=== PATIENT | male | born 1935 | race Caucasian/White ===

== ENCOUNTER 2020-12-24 13:28 | Inpatient (IN) ==
[2020-12-24 14:36] LABS: Basophils # (auto) 0.04 K/uL (0-0.2); Basophils % (auto) 0.4 %; Eosinophils # (auto) 0.06 K/uL (0-0.5); Eosinophils % (auto) 0.6 %; Hematocrit (blood only) 47.9 % (42-52); Hemoglobin 16.6 g/dL (14.0-18.0); Immature Granulocytes # (auto) 0.05 K/uL (0.00-0.02); Immature Granulocytes % (auto) 0.5 %; Lymphocytes # (auto) 0.57 K/uL (1.2-3.4); Lymphocytes % (auto) 5.9 %; Mean Corpuscular Hemoglobin 29.6 pg (25-34); Mean Corpuscular Hgb Conc 34.7 g/dL (32-36); Mean Corpuscular Volume 85.5 fL (80-100); Mean Platelet Volume 9.2 fL (7.4-10.4); Monocytes # (auto) 0.97 K/uL (0.11-0.59); Monocytes % (auto) 10.1 %; Neutrophils # (auto) 7.92 K/uL (1.4-6.5); Neutrophils % (auto) 82.5 %; Platelet Count 210 K/uL (130-400); RDW Coefficient of Variation 14.9 % (11.5-14.5); RDW Standard Deviation 46.3 fL (36.4-46.3); White Blood Count 9.61 K/uL (4.8-10.8)
[2020-12-24] MEDS ORDERED: FUROSEMIDE 40 MG/4 ML VIAL IV ONE (14:45)
[2020-12-24 14:55] LABS: Alanine Aminotransferase 54 U/L (12-78); Albumin Level 3.1 gm/dl (3.4-5.0); Aspartate Aminotransferase 36 U/L (15-37); BUN Creatinine Ratio 16.2 (10-20); Blood Urea Nitrogen 18 mg/dl (7-18); Calcium 9.1 mg/dl (8.5-10.1); Carbon Dioxide 25 mmol/L (21-32); Chloride 100 mmol/L (98-107); Est GFR (African American) 71.1 ml/min; Est GFR (Non-African American) 61.3 ml/min; Glucose 112 mg/dl (70-99); Lipase 312 U/L (73-393); Magnesium 2.7 mg/dl (1.8-2.4); Potassium 4.4 mmol/L (3.5-5.1); Sodium 133 mmol/L (136-145)
[2020-12-24 15:11] LABS: Albumin Globulin Ratio 0.7 (0.9-2); Alkaline Phosphatase 157 U/L (45-117); Bilirubin,Total 1.2 mg/dl (0.2-1); Globulin 4.6 gm/dl (2.5-4.0); NT Pro B Type Natriuretic Pept 7150 pg/ml (0-1800); Total Protein 7.7 gm/dl (6.4-8.2); Troponin I 0.055 ng/ml (0-0.045)
[2020-12-24 15:12] LABS: INR 1.2 (0.9-1.1); Partial Thromboplastin Time 26.1 Seconds (21.0-31.0); Prothrombin Time 11.6 Seconds (9.0-12.0)
--- NOTE | 2020-12-24 15:16 | Emergency Department Note ---
Impression & Plan Fluid overload, Atrial fibrillation, Confusion, Bilateral edema of lower extremity ED Provider Note Provider: Jose Yee MD DATE OF SERVICE: 12/24/2020 CHIEF COMPLAINT: Leg swelling, confusion, A. fib HISTORY OF PRESENT ILLNESS: Patient is a 85-year-old gentleman history of atrial fibrillation (not anticoagulation due to fall risk), sepsis, cellulitis, and bioprosthetic valve replacement presenting here referred from the [facility] outpatient clinic today. Patient was seen here yesterday with some leg swelling and weeping with some concern for cellulitis developing. The patient was started on doxycycline. Follow-up in the clinic today and there he complained of little bit of chest pressure and abdominal bloating. Was noted that time to be in atrial fibrillation. Patient denies chest pain to me. States he feels short of breath and winded with movement. States he is noticed his legs both of been swelling with some redness and a little bit of clear serous discharge. Wi fe reports they have had to change towels and various things before due to the amount of liquid departing from here. Patient not had much of the appetite recently and reports has been more foggy or confused over the last week or so. She reports at times he has had some visual hallucinations. Patient denies any significant difficulty speaking at this time. States he is little bit indigestion earlier but denies any nausea or vomiting. Patient states he is on aspirin but no other blood thinners. Patient denies fainting but has felt a little bit unsteady at times. REVIEW OF SYSTEMS: A total of 10 review of systems was obtained and negative except as stated above in the HPI. PAST MEDICAL HISTORY: As noted above MEDICATIONS: Reviewed home medications SOCIAL HISTORY: Lives at home with PHYSICAL EXAM: GENERAL: alert and oriented in no acute distress on stretcher Head: normocephalic and atraumatic EYES: No injection, discharge or icterus. NECK: Trachea midline. ENT: Mucous membranes pink and moist. LUNGS: Airway patent. No retractions. Breath sounds clear but diminished in the right base. HEART: Irregular irregular rate and rhythm. No chest wall tenderness ABDOMEN: Soft and non-tender, without guarding or rebound. Mildly distended. No significant flank tenderness. SKIN: Acyanotic, warm, with some almost fully healed small abrasions of the bilateral flanks. Legs as below. EXTREMITIES: 2-3+ lower extremity swelling and edema with some scattered erythematous areas and clear serous discharge. No crepitus. NEUROLOGICAL: No focal deficits moving all extremities to command No aphasia. No facial droop or slurred speech. EK bpm atrial fibrillation. No PVC. No acute ST segment elevation or depression noted. QTc 505. Some baseline artifact noted. CONTINUOUS CARDIAC MONITORING: was ordered and showed a heart rate of 80s to 90s bpm in atrial fibrillation Patient's laboratory studies and imaging reviewed. Differential includes Infection, dehydration, metabolic abnormality, hypo/hyperglycemia, electrolyte disturbance, anemia, hypoxia, cardiac sources, intracerebral event, toxicologic, neurologic, as well as other pathologies. IMPRESSION/MEDICAL DECISION MAKING: Patient with some bilateral lower extremity swelling with a few areas of redness but some clear serous discharge. Has been placed on doxycycline for possible cellulitis but given the bilateral nature and the swelling in this area as well as some mild abdominal swelling and what appears to be some effusion on the chest x-ray do question if this is more of a CHF presentation. Patient appears to be in summary controlled A. fib at this time. He is not otherwise anticoagulated beyond aspirin. Lower suspicion for PE. Denies active chest pain now. No acute ST segment elevation on the EKG. Troponin is mildly elevated likely more demand related to fluid overload. Covid test was sent and negative. Basic labs otherwise reassuring. Doubt significant intra-abdominal injury given his lack of significant tenderness. Patient did complain of little bit of fogginess at times and has had some hallucinations reported by the . CT of the head was completed without acute intracranial bleed or obvious stroke but radiology report mentions some area of old stroke. Patient not acutely altered here at this time. Unsure if he is old possible strokes may be contributing versus with his generalized illness. Given some Lasix intravenously here to help with his fluid overload. Given new diagnosis and significant swelling will discuss with the hospitalist further care here at the hospital. DIAGNOSIS: Fluid overload, atrial fibrillation, confusion, leg edema bilateral DISPOSITION: Hospitalist will evaluate Patient was agreeable with this plan. Past Med/Surg History Medical History Atrial fibrillation Chronic combined systolic and diastolic CHF (congestive heart failure) H/O actinic keratosis H/O: CVA (cerebrovascular accident) HTN (hypertension) Meningioma Patent foramen ovale Sensorineural hearing loss Surgical History H/O aortic valve replacement with porcine valve H/O inguinal hernia repair S/P appendectomy S/P tonsillectomy S/P TURP Family History Father Cancer Sister Heart disease Social History Smoking Status: Never smoker Hx Alcohol Use: No Preferred Language: [place] Feels Safe at Home: Yes Allergies Allergies Allergy/AdvReac Type Severity Reaction Status Date / Time No Known Allergies Allergy Verified 12/24/20 15:45 Home Meds Home Medications Medication Instructions Recorded Confirmed atorvastatin 20 mg tablet 20 mg PO DAILY 12/23/20 12/24/20 cholecalciferol (vitamin D3) 50 50 mcg PO DAILY 12/23/20 12/24/20 mcg (2,000 unit) capsule (Vitamin D3) finasteride 5 mg tablet 5 mg PO DAILY 12/23/20 12/24/20 pantoprazole 40 mg tablet,delayed 40 mg PO DAILY 12/23/20 12/24/20 release trazodone 50 mg tablet 50 mg PO HS 12/23/20 12/24/20 aspirin 81 mg tablet 81 mg PO DAILY 12/24/20 12/24/20 guaifenesin 600 mg tablet, 600 mg PO Q12H PRN 12/24/20 12/24/20 extended release 12 hr lisinopril 10 mg tablet 10 mg PO DAILY 12/24/20 12/24/20 metoprolol tartrate 25 mg tablet 25 mg PO BID 12/24/20 12/24/20 Previous Rx's Medication Instructions Recorded doxycycline hyclate 100 mg capsule 100 mg PO BID 7 Days #14 cap 12/23/20 Results & Data (ED) Vital Signs Vital Signs - 24 hr 12/24/20 14:16 12/24/20 14:24 12/24/20 14:30 Temperature 36.7 C Temperature Source Oral Pulse Rate 94 H 86 93 H Pulse Rate [Left] Pulse Rhythm [Left] Pulse Strength [Left] Respiratory Rate 20 22 20 Respiratory Effort / Characteristics Respiratory Depth Respiratory Pattern Blood Pressure 146/116 H 143/96 H Blood Pressure [Left Arm] Blood Pressure Mean 126 111 Blood Pressure Mean [Left Arm] Pulse Oximetry 95 95 93 Oxygen Delivery Method Room Air Sepsis Recent Fever Within 48 Hours No Sepsis New/Unexplained Change in Mental Status No Sepsis Action Taken by Nursing No Action Required 12/24/20 15:00 12/24/20 15:30 12/24/20 15:45 Temperature Temperature Source Pulse Rate 100 H 103 H Pulse Rate [Left] 84 Pulse Rhythm [Left] Regular Pulse Strength [Left] Normal Respiratory Rate 19 16 16 Respiratory Effort / Characteristics Non-Labored Respiratory Depth Normal Respiratory Pattern Regular Blood Pressure 148/107 H Blood Pressure [Left Arm] 144/88 H Blood Pressure Mean 120 Blood Pressure Mean [Left Arm] 106 Pulse Oximetry 95 95 95 Oxygen Delivery Method Room Air Sepsis Recent Fever Within 48 Hours Sepsis New/Unexplained Change in Mental Status Sepsis Action Taken by Nursing 12/24/20 16:00 12/24/20 16:30 Temperature Temperature Source Pulse Rate 101 H 119 H Pulse Rate [Left] Pulse Rhythm [Left] Pulse Strength [Left] Respiratory Rate 21 21 Respiratory Effort / Characteristics Respiratory Depth Respiratory Pattern Blood Pressure 141/110 H 129/108 H Blood Pressure [Left Arm] Blood Pressure Mean 120 115 Blood Pressure Mean [Left Arm] Pulse Oximetry 95 92 Oxygen Delivery Method Sepsis Recent Fever Within 48 Hours Sepsis New/Unexplained Change in Mental Status Sepsis Action Taken by Nursing Laboratory Data Result diagrams: 12/24/20 13:11 12/24/20 13:11 Lab Results 12/24/20 12/24/20 12/24/20 Range/Units 13:11 13:11 13:11 WBC 9.61 (4.8-10.8) K/uL RBC 5.60 (4.7-6.1) M/uL Hgb 16.6 (14.0-18.0) g/dL Hct 47.9 (42-52) % MCV 85.5 (80-100) fL MCH 29.6 (25-34) pg MCHC 34.7 (32-36) g/dL RDW Std Deviation 46.3 (36.4-46.3) fL RDW Coeff of Jb 14.9 H (11.5-14.5) % Plt Count 210 (130-400) K/uL MPV 9.2 (7.4-10.4) fL Immature Gran % (Auto) 0.5 % Neut % (Auto) 82.5 % Lymph % (Auto) 5.9 % Stewart % (Auto) 10.1 % Eos % (Auto) 0.6 % Baso % (Auto) 0.4 % Neut # (Auto) 7.92 H (1.4-6.5) K/uL Lymph # (Auto) 0.57 L (1.2-3.4) K/uL Stewart # (Auto) 0.97 H (0.11-0.59) K/uL Eos # (Auto) 0.06 (0-0.5) K/uL Baso # (Auto) 0.04 (0-0.2) K/uL Immature Gran # (Auto) 0.05 H (0.00-0.02) K/uL PT (9.0-12.0) Seconds INR (0.9-1.1) APTT (21.0-31.0) Seconds PTT Ratio Sodium 133 L (136-145) mmol/L Potassium 4.4 (3.5-5.1) mmol/L Chloride 100 (98-107) mmol/L Carbon Dioxide 25 (21-32) mmol/L Anion Gap 8.0 (3-11) BUN 18 (7-18) mg/dl Creatinine 1.10 (0.6-1.4) mg/dl Est Cr Clr Drug Dosing Not Reportable Est GFR ( Amer) 71.1 ml/min Est GFR (Non-Af Amer) 61.3 ml/min BUN/Creatinine Ratio 16.2 (10-20) Glucose 112 H (70-99) mg/dl Calcium 9.1 (8.5-10.1) mg/dl Magnesium 2.7 H (1.8-2.4) mg/dl Total Bilirubin 1.2 H (0.2-1) mg/dl AST 36 (15-37) U/L ALT 54 (12-78) U/L Alkaline Phosphatase 157 H (45-117) U/L Troponin I 0.055 H* (0-0.045) ng/ml NT-Pro-B Natriuret Pep 7150 H (0-1800) pg/ml Total Protein 7.7 (6.4-8.2) gm/dl Albumin 3.1 L (3.4-5.0) gm/dl Globulin 4.6 H (2.5-4.0) gm/dl Albumin/Globulin Ratio 0.7 L (0.9-2) Lipase 312 (73-393) U/L TSH 2.270 (0.300-4.500) uIu/ml COVID-19 Eval Order SARS-CoV-2 (PCR) (Negative) 12/24/20 12/24/20 12/24/20 Range/Units 14:36 14:36 14:36 WBC (4.8-10.8) K/uL RBC (4.7-6.1) M/uL Hgb (14.0-18.0) g/dL Hct (42-52) % MCV (80-100) fL MCH (25-34) pg MCHC (32-36) g/dL RDW Std Deviation (36.4-46.3) fL RDW Coeff of Jb (11.5-14.5) % Plt Count (130-400) K/uL MPV (7.4-10.4) fL Immature Gran % (Auto) % Neut % (Auto) % Lymph % (Auto) % Stewart % (Auto) % Eos % (Auto) % Baso % (Auto) % Neut # (Auto) (1.4-6.5) K/uL Lymph # (Auto) (1.2-3.4) K/uL Stewart # (Auto) (0.11-0.59) K/uL Eos # (Auto) (0-0.5) K/uL Baso # (Auto) (0-0.2) K/uL Immature Gran # (Auto) (0.00-0.02) K/uL PT 11.6 (9.0-12.0) Seconds INR 1.2 H (0.9-1.1) APTT 26.1 (21.0-31.0) Seconds PTT Ratio 1.0 Sodium (136-145) mmol/L Potassium (3.5-5.1) mmol/L Chloride (98-107) mmol/L Carbon Dioxide (21-32) mmol/L Anion Gap (3-11) BUN (7-18) mg/dl Creatinine (0.6-1.4) mg/dl Est Cr Clr Drug Dosing Est GFR ( Amer) ml/min Est GFR (Non-Af Amer) ml/min BUN/Creatinine Ratio (10-20) Glucose (70-99) mg/dl Calcium (8.5-10.1) mg/dl Magnesium (1.8-2.4) mg/dl Total Bilirubin (0.2-1) mg/dl AST (15-37) U/L ALT (12-78) U/L Alkaline Phosphatase (45-117) U/L Troponin I (0-0.045) ng/ml NT-Pro-B Natriuret Pep (0-1800) pg/ml Total Protein (6.4-8.2) gm/dl Albumin (3.4-5.0) gm/dl Globulin (2.5-4.0) gm/dl Albumin/Globulin Ratio (0.9-2) Lipase (73-393) U/L TSH (0.300-4.500) uIu/ml COVID-19 Eval Order Covid19 at [facility] SARS-CoV-2 (PCR) NEGATIVE (Negative) Administered Medications Discontinued Medications Furosemide (Furosemide 40 Mg/4 Ml Vial) 40 mg IV ONE ONE Stop: 12/24/20 14:46 Last Admin: 12/24/20 15:00 Dose: 40 mg Documented by: [id number] Imaging Data Radiologist's Impression: Chest X-Ray 12/24/20 14:27 SINGLE VIEW CHEST CLINICAL HISTORY: Atypical chest pain. FINDINGS: An AP, portable, upright chest radiograph is compared to study dated 08/13/2017. The patient is status post midline sternotomy. The heart is enlarged noting atherosclerotic calcification of the thoracic aorta. There is pulmonary vascular congestion with evidence of interstitial edema. There are right larger than left pleural effusions with bibasilar consolidation. No pneumothorax is seen. The skeletal structures are osteopenic. The bony thorax is grossly intact. IMPRESSION: 1. Cardiomegaly with evidence of congestive failure and pulmonary edema. 2. Right larger than left pleural effusions with bibasilar consolidation. Correlate clinically for evidence of superimposed pneumonia. Radiographic follow-up to resolution is recommended ACT 112: Negative or not required by law. Electronically signed by: Carlos Alberto Woodson M.D. 12/24/2020 4:[address] 12/24/20 15:03 CT head/brain wo con CLINICAL HISTORY: 85 years-old Male with confusion. Acutely altered mental st atus TECHNIQUE: Multiple axial CT images of the head were obtained without contrast. A dose lowering technique was utilized adhering to the principles of ALARA. CT DOSE: 1219.50 mGycm COMPARISON: None. FINDINGS: No acute intracranial hemorrhage, midline shift, intracranial mass, hydrocephalus, territorial ischemia or abnormal extra-axial collection. Age- related involutional changes. White matter hypodensities suggest chronic microvascular ischemic disease. Extensive cerebral vascular calcifications are noted in addition to senescent calcifications of the basal ganglia. Nonspecific linear striated calcifications are noted within the white matter of the centrum semiovale. 8 mm hypodense focus of the medullary brainstem on image 9 series 2. Encephalomalacia from chronic appearing infarct of the periventricular left frontal lobe. The calvarium is intact. The paranasal sinuses, mastoid air cells, and middle ear cavities are clear. IMPRESSION: 1. No acute intracranial hemorrhage, midline shift or acute territorial infarct. 2. Subcentimeter hypodensity of the medullary brainstem is suggestive of artifact versus age-indeterminate lacunar infarct. 3. Chronic left frontal lobe infarct. 4. Age-related involutional changes with chronic microvascular ischemic disease. ACT 112: Negative or not required by law. The above report was generated using voice recognition software. It may contain grammatical, syntax or spelling errors. Electronically signed by: Steve Koroma M.D. 12/24/2020 3:35 PM Discharge Plan Visit Data Chief Complaint: Cardiac Assessment Stated Complaint: CHEST DISCOMFORT ED Provider: Jose Yee Discharge Problem: Fluid overload, Atrial fibrillation, Confusion, Bilateral edema of lower extremity Patient Disposition: Being Evaluated by Hospitalist Discharge Instructions Interventions: ED Discharge Assessment Last Done: 12/24/20 17:46 Discharge Problem: Fluid overload Qualifiers: Hypervolemia type: unspecified Qualified Code(s): E87.70 - Fluid overload, unspecified Atrial fibrillation Qualifiers: Atrial fibrillation type: paroxysmal Qualified Code(s): I48.0 - Paroxysmal atrial fibrillation
--- NOTE | 2020-12-24 15:36 | CT Scan Report ---
CT head/brain wo con CLINICAL HISTORY: 85 years-old Male with confusion. Acutely altered mental status TECHNIQUE: Multiple axial CT images of the head were obtained without contrast. A dose lowering tech nique was utilized adhering to the principles of ALARA. CT DOSE: 1219.50 mGycm COMPARISON: None. FINDINGS: No acute intracranial hemorrhage, midline shift, intracranial mass, hydrocephalus, territorial ischem ia or abnormal extra-axial collection. Age-related involutional changes. White matter hypodensities s uggest chronic microvascular ischemic disease. Extensive cerebral vascular calcifications are noted i n addition to senescent calcifications of the basal ganglia. Nonspecific linear striated calcificatio ns are noted within the white matter of the centrum semiovale. 8 mm hypodense focus of the medullary brainstem on image 9 series 2. Encephalomalacia from chronic appearing infarct of the periventricular left frontal lobe. The calvarium is intact. The paranasal sinuses, mastoid air cells, and middle ear cavities are clear . IMPRESSION: 1. No acute intracranial hemorrhage, midline shift or acute territorial infarct. 2. Subcentimeter hypodensity of the medullary brainstem is suggestive of artifact versus age-indeterm inate lacunar infarct. 3. Chronic left frontal lobe infarct. 4. Age-related involutional changes with chronic microvascular ischemic disease. ACT 112: Negative or not required by law. The above report was generated using voice recognition software. It may contain grammatical, syntax o r spelling errors. Electronically signed by: Steve Koroma M.D. 12/24/2020 3:35 PM
--- NOTE | 2020-12-24 16:08 | XRay Report ---
SINGLE VIEW CHEST CLINICAL HISTORY: Atypical chest pain. FINDINGS: An AP, portable, upright chest radiograph is compared to study dated 08/13/2017. The patient is status post midline sternotomy. The heart is enlarged noting atherosclerotic calcification of the thoracic aorta. There is pulmonary vascular congestion with evidence of interstitial edema. There are right larger than left pleural effusions with bibasilar consolidation. No pneumothorax is seen. The skeletal structures are osteopenic. The bony thorax is grossly intact. IMPRESSION: 1. Cardiomegaly with evidence of congestive failure and pulmonary edema. 2. Right larger than left pleural effusions with bibasilar consolidation. Correlate clinically for ev idence of superimposed pneumonia. Radiographic follow-up to resolution is recommended ACT 112: Negative or not required by law. Electronically signed by: Carlos Alberto Woodson M.D. 12/24/2020 4:06 PM
[2020-12-24] MEDS ORDERED: NITROGLYCERIN SL 0.4 MG/TAB TAB SL PRN (17:45)
[2020-12-24] MEDS ORDERED: ACETAMINOPHEN 325 MG TAB PO PRN (17:45)
[2020-12-24] MEDS ORDERED: guaiFENesin 600 MG TABCR PO PRN (17:45)
--- NOTE | 2020-12-24 19:28 | History & Physical Report ---
Date of Service December 24, 2020 Assessment & Plan (1) Acute on chronic combined systolic and diastolic congestive heart failure: Plan: -Admit to telemetry -Patient presenting by referral PCPs office for evaluation of worsening lower extremity edema -In the ED, proBNP 7100, CXR shows bilateral pleural effusions, right greater than left -Echo 11/11/2020-EF 46%, grade 2 diastolic dysfunction, mild mitral regurgitation, mild tricuspid regurgitation -Patient saturating well on room air -S/p Lasix 40 mg IV in the ED, continue with Lasix 40 mg IV daily -External catheter for strict I's and O's, daily standing weights, low Na+ diet -Cardiology consult, input appreciated (2) Atrial fibrillation: Plan: -Patient was found to be in atrial flutter at the time of routine echocardiogram 11/11/2020. At that time, atenolol was changed to metoprolol and patient was started on Eliquis. At follow-up appointment a couple of weeks later, patient was noted to have a couple of falls, therefore anticoagulation was discontinued and patient was not deemed to be an anticoagulation candidate. -In the ED today, patient is in atrial fibrillation with rates in the 90s - has noted some mild intermittent confusion and patient reports a possible syncopal event yesterday -Head CT shows subcentimeter hypodensity of the medullary brainstem is suggestive of artifact versus age-indeterminate lacunar infarct. -Given underlying atrial fibrillation and head CT findings, will start patient on IV heparin -Continue home ASA and statin -Continue metoprolol for rate control -Brain MRI -Neurology consult, input appreciated (3) Tinea pedis: Plan: -Lower extremity exam findings consistent with tinea pedis -will start terbinafine 250 mg daily - monitor renal functions and LFTs -Doubt bacterial cellulitis, therefore will discontinue doxycycline (4) Elevated troponin: Plan: -Troponin 0.055 -No reports of chest pain, EKG appears nonischemic -Likely demand ischemia in the setting of acute CHF -Trend troponin (5) History of aortic valve replacement with bioprosthetic valve: Plan: -Echo 11/11/2020 demonstrated normal aortic valve prosthesis systolic gradients (6) HTN (hypertension): Plan: -BP controlled, continue lisinopril and metoprolol (7) DVT prophylaxis: Plan: -On IV heparin drip Admission and Anticipated Discharge Date Admission Date: December 24, 2020 History of Present Illness Chief Complaint: Bilateral leg swelling Primary Care Provider: Bucky Murray MD 85-year-old male with PMH HTN, CKD stage III, history of CVA, BPH s/p TURP, bioprosthetic aortic valve replacement in 2005, and other problems to below who presents to the ED for evaluation of bilateral lower extremity swelling. On 11/11/2020, patient had routine echocardiogram and was found to be in atrial flutter. Patient was evaluated by cardiology and atenolol was changed to metoprolol and patient was started on Eliquis. Patient had a follow-up appointment on 12/01/2020 with cardiology. The plan was for patient to be anticoagulated for several weeks and then return for possible cardioversion. Unfortunately, patient had a couple of falls and was deemed to not be an anticoagulation candidate. Patient notes worsening lower extremity edema over t he past few weeks. Also has had about a 20 pound weight gain. Patient had some nasal and chest congestion which improved after starting Mucinex. Patient reports he has intermittent episodes of shortness of breath which he attributes to anxiety. He also reports having very restless sleep over the past week but denies orthopnea. Patient was seen in the ED yesterday and diagnosed with bilateral lower extremity cellulitis and discharged home on doxycycline. Patient reports an episode yesterday that while sitting at the table having breakfast he had a brief moment where his head fell forward and hit the table. He believes he may have passed out briefly. He did not tell his about this episode until now. Patient was seen in PCPs office today for follow-up and due to significant lower extremity edema, he was referred back to the ED. Patient denies any episodes of chest pain. No fevers or chills. Denies dysuria and other urinary symptoms. In the ED, labs show troponin 0.055, proBNP 7100. CXR shows bilateral pleural effusions, right greater than left. Patient is hemodynamically stable and saturating well on room air. He received Lasix 40 mg IV. Allergies Allergy/AdvReac Type Severity Reaction Status Date / Time No Known Allergies Allergy Verified 12/24/20 15:45 Home Medications Medication Instructions Recorded Confirmed Type atorvastatin 20 mg tablet 20 mg PO DAILY 12/23/20 12/24/20 History cholecalciferol (vitamin D3) 50 50 mcg PO DAILY 12/23/20 12/24/20 History mcg (2,000 unit) capsule (Vitamin D3) doxycycline hyclate 100 mg capsule 100 mg PO BID 7 Days #14 cap 12/23/20 12/24/20 Rx finasteride 5 mg tablet 5 mg PO DAILY 12/23/20 12/24/20 History pantoprazole 40 mg tablet,delayed 40 mg PO DAILY 12/23/20 12/24/20 History release trazodone 50 mg tablet 50 mg PO HS 12/23/20 12/24/20 History aspirin 81 mg tablet 81 mg PO DAILY 12/24/20 12/24/20 History guaifenesin 600 mg tablet, 600 mg PO Q12H PRN 12/24/20 12/24/20 History extended release 12 hr lisinopril 10 mg tablet 10 mg PO DAILY 12/24/20 12/24/20 History metoprolol tartrate 25 mg tablet 25 mg PO BID 12/24/20 12/24/20 History Past Med/Surg History Medical History (Updated 12/24/20 @ 20:19 by CHENG Villatoro) Atrial fibrillation Chronic combined systolic and diastolic CHF (congestive heart failure) H/O actinic keratosis H/O: CVA (cerebrovascular accident) HTN (hypertension) Meningioma Patent foramen ovale Sensorineural hearing loss Surgical History (Updated 12/24/20 @ 20:20 by CHENG Villatoro) H/O aortic valve replacement with porcine valve H/O inguinal hernia repair S/P appendectomy S/P tonsillectomy S/P TURP Family History Father Cancer Sister Heart disease Social History Smoking Status: Never smoker Do You Dip or Chew Tobacco: No; Hx Alcohol Use: No Hx Substance Use: No Preferred Language: [place] Power Technician Required: No Beliefs That Will Affect Care: None Current Living Situation: Spouse Other Information That Helps Us Care for You: No Feels Safe at Home: Yes Safety Concerns: Feels Safe At This Time Assistive Devices: None Review of Systems Review of Systems: ROS per HPI, all other systems reviewed and negative Physical Exam Constitutional: WD/WN, vitals as above Eyes: PERRL, conjunctivae normal, anicteric sclerae ENMT: external ear and nose normal, oropharynx normal Respiratory: normal respiratory effort; no respiratory distress Auscultation: + diminished lung sounds Cardiovascular: Rate/Rhythm: regular rate and + irregularly irregular Vessels: normal peripheral pulses Extremities: + edema Bilateral lower extremity +2 to +3 pitting edema extending up to patient's flank, anasarca present Gastrointestinal (Abdomen): normal bowel sounds, soft, nontender, no hepatosplenomegaly Inspection/Auscultation: + abdomen distended Musculoskeletal: no cyanosis or clubbing, extremities motor strength 5/5 Skin: + rash Raised, reddened areas noted over bilateral anterior shins, R > L; dry, cracked, flaky skin BL feet Neurologic: PERRL, EOMI, accommodation nl, no face palsy, no dysarthria moves all extremities and awake; no focal motor deficits Motor/Sensory: no pronator drift Cranial Nerves: normal facial strength, tongue midline and able to elevate shoulders bilaterally Coordination: normal [id number] test Psychiatric: A+Ox3, euthymic affect forgetful Results & Data Results & Data ([facility]) Vital Signs (Past 12 Hours) Vital Signs Temp Pulse Pulse Resp BP BP Pulse Ox 12/24/20 18:00 112 H 22 147/92 H 94 12/24/20 17:45 12/24/20 17:30 106 H 26 H 148/106 H 95 12/24/20 17:00 107 H 20 145/101 H 93 12/24/20 16:30 119 H 21 129/108 H 92 12/24/20 16:00 101 H 21 141/110 H 95 12/24/20 15:45 84 16 144/88 H 95 12/24/20 15:30 103 H 16 95 12/24/20 15:00 100 H 19 148/107 H 95 12/24/20 14:30 93 H 20 143/96 H 93 12/24/20 14:24 36.7 C 86 22 146/116 H 95 12/24/20 14:16 94 H 20 95 Pulse Ox 12/24/20 18:00 12/24/20 17:45 95 12/24/20 17:30 12/24/20 17:00 12/24/20 16:30 12/24/20 16:00 12/24/20 15:45 12/24/20 15:30 12/24/20 15:00 12/24/20 14:30 12/24/20 14:24 12/24/20 14:16 Laboratory Results Short CBC 12/24/20 Range/Units 13:11 WBC 9.61 (4.8-10.8) K/uL Hgb 16.6 (14.0-18.0) g/dL Hct 47.9 (42-52) % Plt Count 210 (130-400) K/uL BMP 12/24/20 13:11 Sodium 133 L Potassium 4.4 Chloride 100 Carbon Dioxide 25 BUN 18 Creatinine 1.10 Glucose 112 H Calcium 9.1 Cardiac Enzymes 12/24/20 12/24/20 Range/Units 13:11 18:08 Troponin I 0.055 H* 0.055 H* (0-0.045) ng/ml Liver Function 12/24/20 Range/Units 13:11 Total Bilirubin 1.2 H (0.2-1) mg/dl AST 36 (15-37) U/L ALT 54 (12-78) U/L Alkaline Phosphatase 157 H (45-117) U/L Albumin 3.1 L (3.4-5.0) gm/dl Diagnostic Findings Chest X-Ray 12/24/20 14:27 SINGLE VIEW CHEST CLINICAL HISTORY: Atypical chest pain. FINDINGS: An AP, portable, upright chest radiograph is compared to study dated 08/13/2017. The patient is status post midline sternotomy. The heart is enlarged noting atherosclerotic calcification of the thoracic aorta. There is pulmonary vascular congestion with evidence of interstitial edema. There are right larger than left pleural effusions with bibasilar consolidation. No pneumothorax is seen. The skeletal structures are osteopenic. The bony thorax is grossly intact. IMPRESSION: 1. Cardiomegaly with evidence of congestive failure and pulmonary edema. 2. Right larger than left pleural effusions with bibasilar consolidation. Correlate clinically for evidence of superimposed pneumonia. Radiographic follow-up to resolution is recommended ACT 112: Negative or not required by law. Electronically signed by: Carlos Alberto Woodson M.D. 12/24/2020 4:[address] 12/24/20 15:03 CT head/brain wo con CLINICAL HISTORY: 85 years-old Male with confusion. Acutely altered mental status TECHNIQUE: Multiple axial CT images of the head were obtained without contrast. A dose lowering technique was utilized adhering to the principles of ALARA. CT DOSE: 1219.50 mGycm COMPARISON: None. FINDINGS: No acute intracranial hemorrhage, midline shift, intracranial mass, hydrocephalus, territorial ischemia or abnormal extra-axial collection. Age- related involutional changes. White matter hypodensities suggest chronic microvascular ischemic disease. Extensive cerebral vascular calcifications are noted in addition to senescent calcifications of the basal ganglia. Nonspecific linear striated calcifications are noted within the white matter of the centrum semiovale. 8 mm hypodense focus of the medullary brainstem on image 9 series 2. Encephalomalacia from chronic appearing infarct of the periventricular left frontal lobe. The calvarium is intact. The paranasal sinuses, mastoid air cells, and middle ear cavities are clear. IMPRESSION: 1. No acute intracranial hemorrhage, midline shift or acute territorial infarct. 2. Subcentimeter hypodensity of the medullary brainstem is suggestive of artifact versus age-indeterminate lacunar infarct. 3. Chronic left frontal lobe infarct. 4. Age-related involutional changes with chronic microvascular ischemic disease. ACT 112: Negative or not required by law. The above report was generated using voice recognition software. It may contain grammatical, syntax or spelling errors. Electronically signed by: Steve Koroma M.D. 12/24/2020 3:35 PM Code Status & VTE Plan Code Status Patient is a full code as per my discussion with him. VTE Prophylaxis Plan VTE Prophylaxis will be ordered: Yes Supervising Physician Co-Signing Physician Notes I have seen and examined the patient and have discussed the case with the provider above. I agree with the assessment and plan as stated. 85 yo M presenting with worsening lower extremity swelling. He is overtly fluid overloaded with anasarca. 3+pitting edema in the bilateral lower extremities, a protuberant abdomen with a positive fluid wave, notably larger to aptient in the last couple of weeks, and bilateral pleural effusions. No known liver disease and not taking medications that may cause swelling including things such as dihydropyridine calcium channel blockers or steroids. He has new onset atrial fibrillation and is notably not on anticoagulation. As he gave the history, he appeared to have the essence of someone previously very articulate who has lost some ability to communicate effectively. He struggled with word finding a bit and was rather emotional at times throughout the interview. Suspect the age indeterminate stroke to be contributing to this ?deficit and CT notes additional stroke sites that are chronic. Agree with adding heparin at this time and pursuing an MRI. He is taking ASA 81 and will cont Liptor but at higher dosage for higher intensity. He is in atrial fibrillation and is slightly tachycardic. Agree with continuing metoprolol and obtaining a cardiology consult to readdress strategies of treating afib. He has received Lasix in the ER with very good response, although not formally recorded in the ER. Cont with Lasix daily in this naive patient and monitor daily lytes and renal function. Physical exam reveals a thin man in NAD who is speaking in complete sentences and not in any respiratory distress or requiring oxygen. Lungs reveal coarse crackles at the bases bilaterally and cardiac exam reveals irregularly irregular rhythm with S1/2 heard and no m/g/r. Abdomen is protuberant with a +fluid wave. Lower extremities reveal 3+ pitting edema bilaterally with a noncontiguous raised erythematous rash on the anterior lower extremities. He Has severe onychomycosis and foot involvement, especially on the right foot with an erythematous fungal-appearing rash. Patient denies any itching or pain in the rash area and there are no clear open wounds. It doesn't' appear that cellulitis is present. Suspect severe dermatophyte infection and agree with a short course of terbinafine. DO William (1) Atrial fibrillation Atrial fibrillation type: paroxysmal Qualified Code(s): I48.0 - Paroxysmal atrial fibrillation
[2020-12-24] MEDS ORDERED: Heparin IV Adult Wt-Based Standard *NO* Bolus Protocol IV SCH (19:51)
[2020-12-24] MEDS ORDERED: DOXYCYCLINE HYCLATE 100 MG CAP PO SCH (21:00)
[2020-12-24] MEDS ORDERED: traZODone HCL 50 MG TAB PO SCH (21:00)
[2020-12-24] MEDS: HEPARIN SODIUM/DEXTROSE 25,000 UNITS/500 ML BAG IV SCH (21:22)
[2020-12-24] MEDS: terbinafine HCL 250 MG TAB PO SCH (21:36)
[2020-12-24] MEDS: METOPROLOL TARTRATE 25 MG TAB PO SCH (21:37)
[2020-12-24] MEDS ORDERED: HEPARIN SOD 5,000 UNIT/0.5 ML VIAL SQ SCH (22:00)
[2020-12-24 22:03] LABS: Appearance Urine Cloudy (Clear); Bacteria Urine Automated Negative (Negative); Bilirubin Urine Negative (Negative); Blood Urine Trace (Negative); Color Urine Yellow; Epithelial Cell Urine Auto 0-5 /lpf (0-5); Glucose Urine UA Negative (Negative); Ketones Urine Negative (Negative); Leukocyte Esterase Urine 2+ (Negative); Nitrite Urine Negative (Negative); Protein Urine Negative (Negative); RBC Urine Automated 0-4 /hpf (0-4); Specific Gravity Urine 1.006 (1.000-1.030); Urobilinogen Urine Negative (Negative); WBC Urine Automated >30 /hpf (0-5)
[2020-12-25 03:32] LABS: Hematocrit (blood only) 42.1 % (42-52); Hemoglobin 14.6 g/dL (14.0-18.0); Mean Corpuscular Hemoglobin 29.3 pg (25-34); Mean Corpuscular Hgb Conc 34.7 g/dL (32-36); Mean Corpuscular Volume 84.5 fL (80-100); Mean Platelet Volume 8.5 fL (7.4-10.4); Platelet Count 162 K/uL (130-400); RDW Coefficient of Variation 14.9 % (11.5-14.5); RDW Standard Deviation 45.9 fL (36.4-46.3); Red Blood Count 4.98 M/uL (4.7-6.1); White Blood Count 8.48 K/uL (4.8-10.8)
[2020-12-25 03:53] LABS: Partial Thromboplastin Ratio 2.7
[2020-12-25 03:54] LABS: Albumin Level 2.6 gm/dl (3.4-5.0); BUN Creatinine Ratio 14.8 (10-20); Bilirubin Direct 0.5 mg/dl (0-0.2); Calcium 9.1 mg/dl (8.5-10.1); Creatinine Clr Calc Pharmacy 52.1 ml/min; Est GFR (African American) 71.9 ml/min; Magnesium 2.4 mg/dl (1.8-2.4); Potassium 3.4 mmol/L (3.5-5.1)
[2020-12-25 03:55] LABS: Partial Thromboplastin Time 70.2 Seconds (21.0-31.0)
[2020-12-25 04:13] LABS: Bilirubin,Total 1.6 mg/dl (0.2-1); Total Protein 6.4 gm/dl (6.4-8.2)
--- NOTE | 2020-12-25 06:17 | Electrocardiogram Report ---
Test Reason : Blood Pressure : / mmHG Vent. Rate : 096 BPM Atrial Rate : 111 BPM P-R Int : 000 ms QRS Dur : 084 ms QT Int : 400 ms P-R-T Axes : 000 -29 059 degrees QTc Int : 505 ms Atrial fibrillation Inferior infarct , age undetermined Nonspecific T wave abnormality Abnormal ECG When compared with ECG of 23-DEC-2020 17:44, QRS axis Shifted left Inferior infarct is now Present Confirmed by Mohan Whitehead ([id number]) on 12/25/2020 6:17:29 AM Referred By: Bucky Murray Confirmed By:Mohan Whitehead
--- NOTE | 2020-12-25 07:27 | Magnetic Resonance Report ---
MR brain wo con HISTORY: 85 years-old Male stroke eval acute strokelike symptoms COMPARISON: Head CT 12/24/2020 TECHNIQUE: Multiplanar multisequence MRI the brain was obtained without the use of IV contrast. FINDINGS: Motion degraded exam. No restricted diffusion to suggest acute or subacute infarct. Chronic 10 mm inf arct of the brainstem on image 7 of series 6 encephalomalacia related to chronic infarct of the periv entricular left frontal lobe and genu of the corpus callosum. No acute intracranial hemorrhage, midli ne shift, abnormal extra-axial collection, hydrocephalus or intracranial mass. Senescent calcificatio ns of the lentiform nuclei. Punctate areas of blooming artifact are noted within the bilateral cerebr al hemispheres as seen on image 15 of series 8 which may represent areas of chronic microhemorrhage. Age-related involutional changes with extensive and confluent T2/FLAIR hyperintensities throughout th e white matter. The cerebellum is atrophic. Cerebral venous sinuses and major arterial flow voids appear patent. Mild asymmetric prominence of th e left carotid terminus compared to the right. Mastoid air cells and paranasal sinuses are clear. The skull, orbits and soft tissues are unremarkable. IMPRESSION: 1. No acute intracranial abnormality. No acute or subacute infarct. 2. Chronic infarcts of the brainstem, periventricular left frontal lobe and genu of the corpus callos um. 3. Age-related involutional changes with extensive chronic microvascular ischemic disease. ACT 112: Negative or not required by law. The above report was generated using voice recognition software. It may contain grammatical, syntax o r spelling errors. Electronically signed by: Steve Koroma M.D. 12/25/2020 7:26 AM
[2020-12-25] MEDS: METOPROLOL TARTRATE 25 MG TAB PO SCH ×4 (07:49→20:01)
[2020-12-25] MEDS: terbinafine HCL 250 MG TAB PO SCH (07:49)
[2020-12-25] MEDS: PANTOprazole 40 MG TAB PO SCH (07:49)
[2020-12-25] MEDS: lisinopril 10 MG TAB PO SCH (07:49)
[2020-12-25] MEDS: FINASTERIDE 5 MG TAB PO SCH (07:50)
[2020-12-25] MEDS: ASPIRIN 81 MG ECTAB PO SCH (07:50)
[2020-12-25] MEDS: FUROSEMIDE 40 MG/4 ML VIAL IV SCH (07:50)
[2020-12-25] MEDS ORDERED: ATORVASTATIN 20 MG TAB PO SCH (09:00)
[2020-12-25] MEDS ORDERED: ATORVASTATIN 40 MG TAB PO SCH (09:00)
--- NOTE | 2020-12-25 10:28 | Neurology Consultation ---
Date of Consultation December 25, 2020 Assessment & Plan (1) Confusion: 1. 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 PT/OT speech discharge needs 3. defer anticoagulation to cards now on heparin plans to transition to Eliquis 4. fall precautions 5. optimize HTN, HLD, DM LDL <70 consider patients age (2) Bilateral edema of lower extremity: 1. continue antibiotic therapy for cellulitis 2. elevate LE as much as possible 3. cards for appropriate diuresing Supervising Physician Co-Signing Physician Notes I have seen and discussed above patient with Dr Niru Cherry, neurology. Patient seen and examined images labs reviewed patient seen and examined patient patient seen patient seen patient seen and examined MRI labs images reviewed. Patient admitted for increased cellulitis. Increased confusion. No new weakness or numbness. Patient did note at some point in the recent past a brief syncopal episode where his head drifted down to the laptop and then he lifted his head up he had no other neurologic symptoms. There was no confusion. On exam he is awake and alert speech is mildly dysarthric. There is no field cut there is a flattening of the right nasolabial fold right upper and right lower extremity are about 4 out of 5 impression history of cerebrovascular disease recent increase in generalized weakness. No evidence of a new cerebral infarction. Brief syncopal episode doubt neurologic in nature given the brevity and absence of postevent confusion or focal neurologic symptoms. Will sign off History of Present Illness Reason for Consultation: stroke eval Requesting Physician: Elham Thomas DO Attending Physician: Elham Thomas DO History of Present Illness Armin is a 85 year old male with PMH HTN, CKD stage III, CVA, BPH s/p TURP, bioprosthetic aortic valve replacement in 2005. He presents to the [facility] ED 12/24/2020 for evaluation of bilateral lower extremity swelling. On 11/11/2020, he had routine echocardiogram and was found to be in atrial flutter. He was evaluated by cardiology and atenolol was changed to metoprolol and patient was started on Eliquis. A follow-up appointment on 12/01/2020 with cardiology and planned anticoagulated for several weeks and then return for possible cardioversion.He had a couple of falls and was deemed to not be an anticoagu lation candidate.He has worsening lower extremity edema over the past few weeks and a 20 pound weight gain.He had some nasal and chest congestion which improved after starting Mucinex. He has intermittent episodes of shortness of breath which he attributes to anxiety. and very restless sleep over the past week but denies orthopnea. He was seen in the ED yesterday and diagnosed with bilateral lower extremity cellulitis and discharged home on doxycycline.He had an episode yesterday that while sitting at the table having breakfast he had a brief moment where his head fell forward and hit the table. He believes he may have passed out briefly. He did not tell his about this episode until now. He was seen in PCPs office today for follow-up and due to significant lower extremity edema, he was referred back to the ED. He is sitting up bedside and says he is feeling weak. He has not had an appetite and has not eaten much in the last few days. His is in the room and thinks the leg edema is better than when he presented. He has been having falls at home. denies CP, SOB, abdominal pain, one sided weakness, numbness tingling, N, V. Allergies Allergy/AdvReac Type Severity Reaction Status Date / Time No Known Allergies Allergy Verified 12/24/20 15:45 Home Medications Medication Instructions Recorded Confirmed Type atorvastatin 20 mg tablet 20 mg PO DAILY 12/23/20 12/24/20 History cholecalciferol (vitamin D3) 50 50 mcg PO DAILY 12/23/20 12/24/20 History mcg (2,000 unit) capsule (Vitamin D3) doxycycline hyclate 100 mg capsule 100 mg PO BID 7 Days #14 cap 12/23/20 12/24/20 Rx finasteride 5 mg tablet 5 mg PO DAILY 12/23/20 12/24/20 History pantoprazole 40 mg tablet,delayed 40 mg PO DAILY 12/23/20 12/24/20 History release trazodone 50 mg tablet 50 mg PO HS 12/23/20 12/24/20 History aspirin 81 mg tablet 81 mg PO DAILY 12/24/20 12/24/20 History guaifenesin 600 mg tablet, 600 mg PO Q12H PRN 12/24/20 12/24/20 History extended release 12 hr lisinopril 10 mg tablet 10 mg PO DAILY 12/24/20 12/24/20 History metoprolol tartrate 25 mg tablet 25 mg PO BID 12/24/20 12/24/20 History Patient History Medical History Atrial fibrillation Chronic combined systolic and diastolic CHF (congestive heart failure) H/O actinic keratosis H/O: CVA (cerebrovascular accident) HTN (hypertension) Meningioma Patent foramen ovale Sensorineural hearing loss Surgical History H/O aortic valve replacement with porcine valve H/O inguinal hernia repair S/P appendectomy S/P tonsillectomy S/P TURP Family History Father Cancer Sister Heart disease Social History Smoking Status: Never smoker Do You Dip or Chew Tobacco: No; Hx Alcohol Use: No Hx Substance Use: No Preferred Language: Ukrainian Communication Ability: Effective 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 Beliefs That Will Affect Care: None marital status: Current Living Situation: Spouse Other Information That Helps Us Care for You: No Feels Safe at Home: Yes Safety Concerns: Feels Safe At This Time Assistive Devices: Walker Review of Systems Review of Systems: All systems reviewed & are unremarkable except as noted in HPI & below Physical Exam Physical Exam: Physical Exam: Constitutional: appearance nourished, ill appearing Ears, Nose, Mouth and Throat: mucous membranes moist, no injection and skin normal, eyes normal Cardiovascular: irregular Respiratory: course breath sounds Musculoskeletal: bilateral peripheral edema and good distal pulses Skin: bi lateral LE cellulitis with scabbing Eyes: extraocular muscles intact (EOMI) and pupils equal, round and reactive to light (PERRL) NEUROLOGIC EXAMINATION: Mental status: Alert and interactive Oriented to full date and location Oriented to person Speech fluent with no evidence of aphasia Cranial Nerves smile eye brow raise symmetric Reflexes: Deep tendon reflexes were symmetrical decreased LE Sensory: intact to light cool touch Coordination: finger to nose no bi pass Gait/Stance: Posture normal. Gait not assessed Motor: Negative for pronator drift of out stretched arms with eyes closed. 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 triceps bilaterally 4+/5 bilaterally hip flex 5/5 Results & Data ([facility]) Vital Signs (Past 12 Hours) Vital Signs Temp Pulse Pulse Resp BP Pulse Ox 12/25/20 07:29 36.6 C 113 H 21 137/109 H 96 12/25/20 04:00 36.5 C 99 H 20 133/93 94 12/25/20 00:00 36.7 C 91 H 20 117/84 94 Laboratory Results Abnormal lab results 12/24/20 12/24/20 12/24/20 Range/Units 13:11 13:11 14:36 RDW Coeff of Jb 14.9 H (11.5-14.5) % Neut # (Auto) 7.92 H (1.4-6.5) K/uL Lymph # (Auto) 0.57 L (1.2-3.4) K/uL Runnels # (Auto) 0.97 H (0.11-0.59) K/uL Immature Gran # (Auto) 0.05 H (0.00-0.02) K/uL INR 1.2 H (0.9-1.1) APTT (21.0-31.0) Seconds Sodium 133 L (136-145) mmol/L Potassium (3.5-5.1) mmol/L Glucose 112 H (70-99) mg/dl Magnesium 2.7 H (1.8-2.4) mg/dl Total Bilirubin 1.2 H (0.2-1) mg/dl Direct Bilirubin (0-0.2) mg/dl Alkaline Phosphatase 157 H (45-117) U/L Troponin I 0.055 H* (0-0.045) ng/ml NT-Pro-B Natriuret Pep 7150 H (0-1800) pg/ml Albumin 3.1 L (3.4-5.0) gm/dl Globulin 4.6 H (2.5-4.0) gm/dl Albumin/Globulin Ratio 0.7 L (0.9-2) Urine Appearance (Clear) Urine Blood (Negative) Ur Leukocyte Esterase (Negative) Urine WBC (Auto) (0-5) /hpf 12/24/20 12/24/20 12/25/20 Range/Units 18:08 21:54 00:13 RDW Coeff of Jb (11.5-14.5) % Neut # (Auto) (1.4-6.5) K/uL Lymph # (Auto) (1.2-3.4) K/uL Runnels # (Auto) (0.11-0.59) K/uL Immature Gran # (Auto) (0.00-0.02) K/uL INR (0.9-1.1) APTT (21.0-31.0) Seconds Sodium (136-145) mmol/L Potassium (3.5-5.1) mmol/L Glucose (70-99) mg/dl Magnesium (1.8-2.4) mg/dl Total Bilirubin (0.2-1) mg/dl Direct Bilirubin (0-0.2) mg/dl Alkaline Phosphatase (45-117) U/L Troponin I 0.055 H* 0.066 H* (0-0.045) ng/ml NT-Pro-B Natriuret Pep (0-1800) pg/ml Albumin (3.4-5.0) gm/dl Globulin (2.5-4.0) gm/dl Albumin/Globulin Ratio (0.9-2) Urine Appearance Cloudy A (Clear) Urine Blood Trace H (Negative) Ur Leukocyte Esterase 2+ H (Negative) Urine WBC (Auto) >30 H (0-5) /hpf 12/25/20 12/25/20 12/25/20 Range/Units 03:25 03:25 03:25 RDW Coeff of Jb 14.9 H (11.5-14.5) % Neut # (Auto) (1.4-6.5) K/uL Lymph # (Auto) (1.2-3.4) K/uL Runnels # (Auto) (0.11-0.59) K/uL Immature Gran # (Auto) (0.00-0.02) K/uL INR (0.9-1.1) APTT 70.2 H* (21.0-31.0) Seconds Sodium 135 L (136-145) mmol/L Potassium 3.4 L D (3.5-5.1) mmol/L Glucose 113 H (70-99) mg/dl Magnesium (1.8-2.4) mg/dl Total Bilirubin 1.6 H (0.2-1) mg/dl Direct Bilirubin 0.5 H (0-0.2) mg/dl Alkaline Phosphatase 130 H (45-117) U/L Troponin I (0-0.045) ng/ml NT-Pro-B Natriuret Pep (0-1800) pg/ml Albumin 2.6 L (3.4-5.0) gm/dl Globulin (2.5-4.0) gm/dl Albumin/Globulin Ratio (0.9-2) Urine Appearance (Clear) Urine Blood (Negative) Ur Leukocyte Esterase (Negative) Urine WBC (Auto) (0-5) /hpf Diagnostic Findings MRI brain-No acute intracranial abnormality. No acute or subacute infarct. 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 Age-related involutional changes with extensive chronic microvascular ischemic disease. CT head-No acute intracranial hemorrhage, midline shift or acute territorial infarct. Subcentimeter hypodensity of the medullary brainstem is suggestive of artifact versus age-indeterminate lacunar infarct. Chronic left frontal lobe infarct. . Age-related involutional changes with chronic microvascular ischemic disease. CXR-. Cardiomegaly with evidence of congestive failure and pulmonary edema. Right larger than left pleural effusions with bibasilar consolidation. Correlate clinically for evidence of superimposed pneumonia. Radiographic follow-up to resolution is recommended
[2020-12-25 10:51] LABS: Partial Thromboplastin Ratio 2.9
[2020-12-25 10:56] LABS: Partial Thromboplastin Time 76.5 Seconds (21.0-31.0)
--- NOTE | 2020-12-25 11:32 | Cardiology Consultation ---
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 Atrial fibrillation with mildly elevated ventricular response, [id number] Score of 7 points Agree with IV furosemide as prescribed. Supplement potassium Add low dose spironolactone Agree with heparin, transitioning to Eliquis anticoagulation Increase metoprolol for additional heart rate control. Consider antibiotic therapy for the possible pneumonia and cellulitis Caution with terbinafine; atorvastatin increased this admission, concurrent use of acetaminophen and trazodone. Further recommendations pending the above, evaluation by Dr. Torres, patient's ongoing hospitalization. Supervising Physician Co-Signing Physician Notes Patient seen and examined at the bedside. Complains of fatigue, shortness of breath, and worsening edema. Poor historian. Denies chest discomfort or heaviness. Atrial fibrillation with right ventricular response on telemetry, ho wever, patient denies palpitations. No lightheadedness, dizziness, syncope, or near syncope. PE: Tachycardic, otherwise stable vital signs, General: NAD, awake and alert. Heart: Irregular, tachycardic, normal S1, S2. 2/6 systolic ejection murmur heard best at the right second intercostal space. Lungs: Absent breath sounds in the lower and mid right lung guillen. Rales at the left base. No wheeze. Extremities: 2+ bilateral lower extremity pretibial edema, right greater than left. Right lower extremity pretibial erythema. No warmth or skin breakdown. A/P: Agree with above PA-C history, physical exam, assessment and plan. Patient made with acute decompensated heart failure with reduced ejection fraction and diastolic dysfunction. Large right-sided pleural effusion noted. Continue IV diuresis. Monitor daily weight, fluid balance, GFR, and electrolytes. Continue lisinopril as previously ordered. Consider addition of spironolactone during hospitalization. Rate control strategy with titration of metoprolol as described above. Agree with intravenous heparin. Initial concerns regarding acute CVA noted. MRI without evidence of acute infarct. Concerns noted regarding titration of atorvastatin in combination with terbinafine. Patient may continue lower dose at atorvastatin (20 mg) at this time. History of Present Illness Reason for Consultation: CHF Requesting Physician: Latoya Attending Physician: William, History of Present Illness Mr. Armin Juarez is a very pleasant 85 year old male who is being seen at the request of CHENG Chin and Dr. Thomas. Reason for consultation is congestive heart failure. Patient notably presented for routine resting echocardiography on November 11, 2020, presenting at that time with new onset atypical atrial flutter with 2-1 conduction. He was seen as an add-on by Dr. Torres and was notably unaware of the arrhythmia at that time, reporting chronic bilateral ankle and pretibial edema. Recommendations by Dr. Torres included laboratory work, changing atenolol to metoprolol, initiating Eliquis anticoagulation ([id number] Score 7 points), and close cardiology follow-up with possible referral for direct- current cardioversion. Resting echocardiography notable for mild to moderate reduction in left ventricular systolic function, ejection fraction 46%. Grade 2 diastolic dysfunction observed. The aortic valve prosthesis gradient was normal, without significant aortic valve prosthesis regurgitation. Severe concentric LVH was observed along with mild mitral and tricuspid regurgitation, moderate biatrial enlargement. On December 01, 2020 he was evaluated by his primary tack picker and was noted to have multiple mechanical falls leading to discontinuation of anticoagulation. He was seen in the ER on December 23, 2020, presenting at that time with worsening lower extremity peripheral edema as well as a rash that started on the right and spread to the left. He was diagnosed with cellulitis and prescribed doxycycline 100 mg twice per day x7 days. Yesterday, he was seen in his PCPs office for ER follow-up as well as due to complaints of worsening dyspnea as well as intermittent chest tightness. He was notably confused and decompensated, requiring EMS transport to [facility] ER. EKG on presentation to [facility] ER revealed atrial fibrillation with a ventricular rate of 95 bpm. Left axis deviation was noted along with low voltage QRS, nonspecific T wave abnormality. QTC prolonged at 517 ms. Troponin minimally elevated at 0.055, 0.055, 0.066 ng/mL. Chest x-ray showed cardiomegaly with evidence of congestive heart failure and pulmonary edema, right greater than left pleural effusions, possible underlying superimposed pneumonia. CT scan of the head showed no acute intracranial abnormalities but did demonstrate findings suggestive of an age-indeterminate lacunar infarct as well as a chronic left frontal lobe infarct and age-related changes including microvascular ischemic disease. MRI revealed no acute intracranial abnormality. It did reveal chronic infarcts of the brainstem, periventricular left frontal lobe and genu of the corpus callosum as well as age-related involutional changes with extensive chronic microvascular ischemic disease. Patient admitted with a working diagnoses of acute on chronic systolic and diastolic congestive heart failure, atrial fibrillation/flutter. IV furosemide prescribed appropriately with a total output of 2,152 mL thus far. Hypervolemic hyponatremia noted. Patient prescribed oral terbinafine due to tinea pedis. Cardiac history includes aortic valve disease status post November 2005 replacement with a 25 mm freestyle valve and root conduit for severe aortic insufficiency and dilated aortic root. Preoperative cardiac catheterization performed on November 16, 2005 revealed angiographically normal coronaries. Postoperative course complicated by transient encephalopathy. Prior history includes a remote history of CVA in the late 1980s, chart history of atrial thrombus, PFO, hypertension, hypertensive heart disease, dyslipidemia, chronic kidney disease, bladder outlet obstruction, peptic ulcer disease, GERD, vertigo, BPH, cholelithiasis, and diverticulosis. Allergies Allergy/AdvReac Type Severity Reaction Status Date / Time No Known Allergies Allergy Verified 12/24/20 15:45 Home Medications Medication Instructions Recorded Confirmed Type atorvastatin 20 mg tablet 20 mg PO DAILY 12/23/20 12/24/20 History cholecalciferol (vitamin D3) 50 50 mcg PO DAILY 12/23/20 12/24/20 History mcg (2,000 unit) capsule (Vitamin D3) doxycycline hyclate 100 mg capsule 100 mg PO BID 7 Days #14 cap 12/23/20 12/24/20 Rx finasteride 5 mg tablet 5 mg PO DAILY 12/23/20 12/24/20 History pantoprazole 40 mg tablet,delayed 40 mg PO DAILY 12/23/20 12/24/20 History release trazodone 50 mg tablet 50 mg PO HS 12/23/20 12/24/20 History aspirin 81 mg tablet 81 mg PO DAILY 12/24/20 12/24/20 History guaifenesin 600 mg tablet, 600 mg PO Q12H PRN 12/24/20 12/24/20 History extended release 12 hr lisinopril 10 mg tablet 10 mg PO DAILY 12/24/20 12/24/20 History metoprolol tartrate 25 mg tablet 25 mg PO BID 12/24/20 12/24/20 History Patient History Medical History Atrial fibrillation Chronic combined systolic and diastolic CHF (congestive heart failure) H/O actinic keratosis H/O: CVA (cerebrovascular accident) HTN (hypertension) Meningioma Patent foramen ovale Sensorineural hearing loss Surgical History H/O aortic valve replacement with porcine valve H/O inguinal hernia repair S/P appendectomy S/P tonsillectomy S/P TURP Family History Father Cancer Sister Heart disease Social History Smoking Status: Never smoker Do You Dip or Chew Tobacco: No; Hx Alcohol Use: No Hx Substance Use: No Preferred Language: German [employer] Required: No Beliefs That Will Affect Care: None Current Living Situation: Spouse Other Information That Helps Us Care for You: No Feels Safe at Home: Yes Safety Concerns: Feels Safe At This Time Assistive Devices: Hearing Aid - Right Review of Systems Review of Systems: An accurate and complete review of systems was unable to be obtained. Physical Exam Physical Exam: General: A&O to person and place. HENT: Normocephalic. Atraumatic. Eyes: PER. Conjunctiva pink, sclera clear. Neck: + JVD. + HJR. Heart: Irregularly irregular around 100 bpm. Soft apical systolic murmur. Lungs: Clear anteriorly. Absent breath sounds at the bases, right more so than the left. Abdomen: +BS. Soft. Nontender. No masses or organomegaly. Extremities: 1-2+ edema. + Rash suggestive of cellulitis. No clubbing. No cyanosis Pulses: radial=2/4, posterior tibial=1/4. Results & Data ([facility]) Vital Signs (Past 12 Hours) Vital Signs Temp Pulse Pulse Resp BP Pulse Ox 12/25/20 07:29 36.6 C 113 H 21 137/109 H 96 12/25/20 04:00 36.5 C 99 H 20 133/93 94 12/25/20 00:00 36.7 C 91 H 20 117/84 94 Laboratory Results Laboratory Results - last 24 hr 12/24/20 12/24/20 12/24/20 13:11 13:11 13:11 WBC 9.61 RBC 5.60 Hgb 16.6 Hct 47.9 MCV 85.5 MCH 29.6 MCHC 34.7 RDW Std Deviation 46.3 RDW Coeff of Jb 14.9 H Plt Count 210 MPV 9.2 Immature Gran % (Auto) 0.5 Neut % (Auto) 82.5 Lymph % (Auto) 5.9 Whitfield % (Auto) 10.1 Eos % (Auto) 0.6 Baso % (Auto) 0.4 Neut # (Auto) 7.92 H Lymph # (Auto) 0.57 L Whitfield # (Auto) 0.97 H Eos # (Auto) 0.06 Baso # (Auto) 0.04 Immature Gran # (Auto) 0.05 H PT INR APTT PTT Ratio Sodium 133 L Potassium 4.4 Chloride 100 Carbon Dioxide 25 Anion Gap 8.0 BUN 18 Creatinine 1.10 Est Cr Clr Drug Dosing Not Reportable Est GFR ( Amer) 71.1 Est GFR (Non-Af Amer) 61.3 BUN/Creatinine Ratio 16.2 Glucose 112 H Calcium 9.1 Magnesium 2.7 H Total Bilirubin 1.2 H Direct Bilirubin AST 36 ALT 54 Alkaline Phosphatase 157 H Troponin I 0.055 H* NT-Pro-B Natriuret Pep 7150 H Total Protein 7.7 Albumin 3.1 L Globulin 4.6 H Albumin/Globulin Ratio 0.7 L Lipase 312 TSH 2.270 Urine Color Urine Appearance Urine pH Ur Specific [place] Urine Protein Urine Glucose (UA) Urine Ketones Urine Blood Urine Nitrite Urine Bilirubin Urine Urobilinogen Ur Leukocyte Esterase Urine WBC (Auto) Urine RBC (Auto) U Hyaline Cast (Auto) U Epithel Cells (Auto) Urine Bacteria (Auto) COVID-19 Eval Order SARS-CoV-2 (PCR) 12/24/20 12/24/20 12/24/20 14:36 14:36 14:36 WBC RBC Hgb Hct MCV MCH MCHC RDW Std Deviation RDW Coeff of Jb Plt Count MPV Immature Gran % (Auto) Neut % (Auto) Lymph % (Auto) [place] % (Auto) Eos % (Auto) Baso % (Auto) Neut # (Auto) Lymph # (Auto) [place]field # (Auto) Eos # (Auto) Baso # (Auto) Immature Gran # (Auto) PT 11.6 INR 1.2 H APTT 26.1 PTT Ratio 1.0 Sodium Potassium Chloride Carbon Dioxide Anion Gap BUN Creatinine Est Cr Clr Drug Dosing Est GFR ( Amer) Est GFR (Non-Af Amer) BUN/Creatinine Ratio Glucose Calcium Magnesium Total Bilirubin Direct Bilirubin AST ALT Alkaline Phosphatase Troponin I NT-Pro-B Natriuret Pep Total Protein Albumin Globulin Albumin/Globulin Ratio Lipase TSH Urine Color Urine Appearance Urine pH Ur Specific [place] Urine Protein Urine Glucose (UA) Urine Ketones Urine Blood Urine Nitrite Urine Bilirubin Urine Urobilinogen Ur Leukocyte Esterase Urine WBC (Auto) Urine RBC (Auto) U Hyaline Cast (Auto) U Epithel Cells (Auto) Urine Bacteria (Auto) COVID-19 Eval Order Covid19 at [facility] SARS-CoV-2 (PCR) NEGATIVE 12/24/20 12/24/20 12/25/20 18:08 21:54 00:13 WBC RBC Hgb Hct MCV MCH MCHC RDW Std Deviation RDW Coeff of Jb Plt Count MPV Immature Gran % (Auto) Neut % (Auto) Lymph % (Auto) [place] % (Auto) Eos % (Auto) Baso % (Auto) Neut # (Auto) Lymph # (Auto) [place]field # (Auto) Eos # (Auto) Baso # (Auto) Immature Gran # (Auto) PT INR APTT PTT Ratio Sodium Potassium Chloride Carbon Dioxide Anion Gap BUN Creatinine Est Cr Clr Drug Dosing Est GFR ( Amer) Est GFR (Non-Af Amer) BUN/Creatinine Ratio Glucose Calcium Magnesium Total Bilirubin Direct Bilirubin AST ALT Alkaline Phosphatase Troponin I 0.055 H* 0.066 H* NT-Pro-B Natriuret Pep Total Protein Albumin Globulin Albumin/Globulin Ratio Lipase TSH Urine Color Yellow Urine Appearance Cloudy A Urine pH 7.0 Ur Specific [place] 1.006 Urine Protein Negative Urine Glucose (UA) Negative Urine Ketones Negative Urine Blood Trace H Urine Nitrite Negative Urine Bilirubin Negative Urine Urobilinogen Negative Ur Leukocyte Esterase 2+ H Urine WBC (Auto) >30 H Urine RBC (Auto) 0-4 U Hyaline Cast (Auto) 1-5 U Epithel Cells (Auto) 0-5 Urine Bacteria (Auto) Negative COVID-19 Eval Order SARS-CoV-2 (PCR) 12/25/20 12/25/20 12/25/20 03:25 03:25 03:25 WBC 8.48 RBC 4.98 Hgb 14.6 Hct 42.1 MCV 84.5 MCH 29.3 MCHC 34.7 RDW Std Deviation 45.9 RDW Coeff of Jb 14.9 H Plt Count 162 MPV 8.5 Immature Gran % (Auto) Neut % (Auto) Lymph % (Auto) [place] % (Auto) Eos % (Auto) Baso % (Auto) Neut # (Auto) Lymph # (Auto) [place] # (Auto) Eos # (Auto) Baso # (Auto) Immature Gran # (Auto) PT INR APTT 70.2 H* PTT Ratio 2.7 Sodium 135 L Potassium 3.4 L D Chloride 101 Carbon Dioxide 28 Anion Gap 6.0 BUN 16 Creatinine 1.09 Est Cr Clr Drug Dosing 52.1 Est GFR ( Amer) 71.9 Est GFR (Non-Af Amer) 62.0 BUN/Creatinine Ratio 14.8 Glucose 113 H Calcium 9.1 Magnesium 2.4 Total Bilirubin 1.6 H Direct Bilirubin 0.5 H AST 33 ALT 46 Alkaline Phosphatase 130 H Troponin I NT-Pro-B Natriuret Pep Total Protein 6.4 Albumin 2.6 L Globulin Albumin/Globulin Ratio Lipase TSH Urine Color Urine Appearance Urine pH Ur Specific [place] Urine Protein Urine Glucose (UA) Urine Ketones Urine Blood Urine Nitrite Urine Bilirubin Urine Urobilinogen Ur Leukocyte Esterase Urine WBC (Auto) Urine RBC (Auto) U Hyaline Cast (Auto) U Epithel Cells (Auto) Urine Bacteria (Auto) COVID-19 Eval Order SARS-CoV-2 (PCR) 12/25/20 10:15 WBC RBC Hgb Hct MCV MCH MCHC RDW Std Deviation RDW Coeff of Jb Plt Count MPV Immature Gran % (Auto) Neut % (Auto) Lymph % (Auto) [place] % (Auto) Eos % (Auto) Baso % (Auto) Neut # (Auto) Lymph # (Auto) [place] # (Auto) Eos # (Auto) Baso # (Auto) Immature Gran # (Auto) PT INR APTT 76.5 H* PTT Ratio 2.9 Sodium Potassium Chloride Carbon Dioxide Anion Gap BUN Creatinine Est Cr Clr Drug Dosing Est GFR ( Amer) Est GFR (Non-Af Amer) BUN/Creatinine Ratio Glucose Calcium Magnesium Total Bilirubin Direct Bilirubin AST ALT Alkaline Phosphatase Troponin I NT-Pro-B Natriuret Pep Total Protein Albumin Globulin Albumin/Globulin Ratio Lipase TSH Urine Color Urine Appearance Urine pH Ur Specific [place] Urine Protein Urine Glucose (UA) Urine Ketones Urine Blood Urine Nitrite Urine Bilirubin Urine Urobilinogen Ur Leukocyte Esterase Urine WBC (Auto) Urine RBC (Auto) U Hyaline Cast (Auto) U Epithel Cells (Auto) Urine Bacteria (Auto) COVID-19 Eval Order SARS-CoV-2 (PCR) Diagnostic Findings Telemetry: Atrial fibrillation around 100 bpm, with occasional PVC's versus aberrantly conduced complexes.
[2020-12-25] MEDS ORDERED: POTASSIUM CHLORIDE 10 MEQ TABCR PO ONE (12:11)
--- NOTE | 2020-12-25 13:44 | Electrocardiogram Report ---
Test Reason : Blood Pressure : / mmHG Vent. Rate : 095 BPM Atrial Rate : 072 BPM P-R Int : 000 ms QRS Dur : 088 ms QT Int : 412 ms P-R-T Axes : 000 -39 256 degrees QTc Int : 517 ms Atrial fibrillation Left axis deviation Low voltage QRS Nonspecific T wave abnormality Abnormal ECG When compared with ECG of 24-DEC-2020 14:24, Nonspecific T wave abnormality now evident in Inferior leads Confirmed by Mio Smart ([id number]) on 12/25/2020 1:44:17 PM Referred By: Bucky Murray Confirmed By:Mio mSart
[2020-12-25] MEDS: SPIRONOLACTONE 12.5 MG TAB PO SCH (14:02)
[2020-12-25] MEDS: cefTRIAXone SODIUM 1,000 MG in DEXTROSE 5% 50 ML IV SCH (14:03)
[2020-12-25 17:55] LABS: Partial Thromboplastin Ratio 2.6
[2020-12-25 18:08] LABS: Partial Thromboplastin Time 68.6 Seconds (21.0-31.0)
[2020-12-25] MEDS: HEPARIN SODIUM/DEXTROSE 25,000 UNITS/500 ML BAG IV SCH ×2 (18:14→18:41)
--- NOTE | 2020-12-25 18:57 | Hospitalist Progress Note ---
Date of Service December 25, 2020 Assessment & Plan (1) Heart failure, systolic, with acute decompensation: Plan: Elevated BNP, +anasarca on exam. Add low dose spironolactone per cardiology, increase metoprolol for improved heart rate control. Negative 2L at this time. Cont Lasix 40 IV daily. Ambulate with assistance as tolerated. Strict I/Os, low sodium diet, daily standing weights. (2) Pleural effusion: Plan: Cont diuresis as outlined above. No respiratory symptoms or other concerning clinical picture for pneumonia (fevers, chills, cough, etc). Consider repeat chest imaging after significant clinical response to diuresis. (3) Atrial fibrillation: Plan: Remains in persistent atrial fibrillation. Covered with heparin overnight and doing well. Will convert to Eliquis tonight for continued stroke prophylaxis. Metoprolol increased to TID today. Cont to titrate for improved heart rate control (4) UTI (urinary tract infection): Plan: With recent episode of ?syncope, increased forgetfulness and overall decompensation clinically will cover for bacteriuria with short course of antibiotics. Patient has a hill catheter in at this time for accurate I/Os. No fever. Ceftriaxone pending culture and sensitivity. (5) Non-ischemic myocardial injury (non-traumatic): Plan: -Troponin 0.055 -No reports of chest pain, EKG appears nonischemic -Likely demand ischemia in the setting of acute CHF -Trend troponin (6) Tinea pedis: Plan: -Lower extremity exam findings consistent with tinea pedis, appears improved. Holding trazodone and changed lipitor back to home dose 20mg daily- monitor renal functions and LFTs. Skin findings are improved. Doubt secondary cellulitis from appearance. Will cont to monitor closely. (7) History of aortic valve replacement with bioprosthetic valve: Plan: -Echo 11/11/2020 demonstrated normal aortic valve prosthesis systolic gradients. Cont daily aspirin. (8) HTN (hypertension): Plan: -BP controlled, continue lisinopril and metoprolol (9) DVT prophylaxis: Plan: On IV heparin drip, converting to apixaban this evening. Full Code Dispo-per PT/OT recs, likely after the weekend. [facility]ham [facility] and [facility]ticipated Discharge Date Admission Date: December 24, 2020 Subjective 85 yo M admitted for fluid overload. Denies SOB, chest pain Seems forgetful but is oriented when prompted with specific questions Distracted with his IV line Feels he is doing better today Review of Systems Review of Systems: All systems were reviewed and negative except as indicated above. Physical Exam Physical Exam: CONSTITUTIONAL: WNWD, vitals as above, NAD EYES: normal conjunctivae, no scleral icterus ENT: external ear and nose normal, MMM NECK: trachea midline RESPIRATORY: clear with diminished breath sounds at bases, no crackles, rales or wheezes, normal respiratory effort, not requiring oxygen supplementation. CARDIOVASCULAR: irregular rate and rhythm, S1 and 2 heard without murmurs, gallops or rubs, no JVD, no peripheral edema GASTROINTESTINAL: soft, nontender, ND, no guarding MUSCULOSKELETAL: generalized weakness, head is normocephalic and atraumatic : Hill catheter in place. SKIN: warm and dry NEUROLOGIC: CN 2-12 grossly intact, normal cognition, normal speech, no tremor PSYCHIATRIC: alert cooperative and oriented to person, place and time. Results & Data Results & Data ([facility]) Vital Signs (Past 12 Hours) Vital Signs Temp Pulse Pulse Resp BP Pulse Ox 12/25/20 18:00 97 H 24 113/83 94 12/25/20 15:00 36.5 C 108 H 19 102/67 92 12/25/20 07:29 36.6 C 113 H 21 137/109 H 96 Laboratory Results Short CBC 12/25/20 Range/Units 03:25 WBC 8.48 (4.8-10.8) K/uL Hgb 14.6 (14.0-18.0) g/dL Hct 42.1 (42-52) % Plt Count 162 (130-400) K/uL BMP 12/25/20 03:25 Sodium 135 L Potassium 3.4 L D Chloride 101 Carbon Dioxide 28 BUN 16 Creatinine 1.09 Glucose 113 H Calcium 9.1 Cardiac Enzymes 12/24/20 12/25/20 Range/Units 18:08 00:13 Troponin I 0.055 H* 0.066 H* (0-0.045) ng/ml Liver Function 12/25/20 Range/Units 03:25 Total Bilirubin 1.6 H (0.2-1) mg/dl Direct Bilirubin 0.5 H (0-0.2) mg/dl AST 33 (15-37) U/L ALT 46 (12-78) U/L Alkaline Phosphatase 130 H (45-117) U/L Albumin 2.6 L (3.4-5.0) gm/dl Urine 12/24/20 Range/Units 21:54 Urine Color Yellow Urine Appearance Cloudy A (Clear) Urine pH 7.0 (4.5-7.5) Ur Specific Cove 1.006 (1.000-1.030) Urine Protein Negative (Negative) Urine Glucose (UA) Negative (Negative) Diagnostic Findings Brain MRI 12/24/20 19:54 MR brain wo con HISTORY: 85 years-old Male stroke eval acute strokelike symptoms COMPARISON: Head CT 12/24/2020 TECHNIQUE: Multiplanar multisequence MRI the brain was obtained without the use of IV contrast. FINDINGS: Motion degraded exam. No restricted diffusion to suggest acute or subacute infarct. Chronic 10 mm infarct of the brainstem on image 7 of series 6 e ncephalomalacia related to chronic infarct of the periventricular left frontal lobe and genu of the corpus callosum. No acute intracranial hemorrhage, midline shift, abnormal extra-axial collection, hydrocephalus or intracranial mass. Senescent calcifications of the lentiform nuclei. Punctate areas of blooming artifact are noted within the bilateral cerebral hemispheres as seen on image 15 of series 8 which may represent areas of chronic microhemorrhage. Age-related involutional changes with extensive and confluent T2/FLAIR hyperintensities throughout the white matter. The cerebellum is atrophic. Cerebral venous sinuses and major arterial flow voids appear patent. Mild asymmetric prominence of the left carotid terminus compared to the right. Mastoid air cells and paranasal sinuses are clear. The skull, orbits and soft tissues are unremarkable. IMPRESSION: 1. No acute intracranial abnormality. No acute or subacute infarct. 2. 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 3. Age-related involutional changes with extensive chronic microvascular ischemic disease. ACT 112: Negative or not required by law. The above report was generated using voice recognition software. It may contain grammatical, syntax or spelling errors. Electronically signed by: Steve Koroma M.D. 12/25/2020 7:26 AM Medications Administered Current Inpatient Medications Acetaminophen (Acetaminophen 325 Mg Tab) 650 mg PO Q4H PRN PRN Reason: Pain or Fever Stop: 01/23/21 17:44 Aspirin (Aspirin 81 Mg Ectab) 81 mg PO DAILY [facility] Stop: 01/24/21 08:59 Last Admin: 12/25/20 07:50 Dose: 81 mg Documented by: Atorvastatin Calcium (Atorvastatin 40 Mg Tab) 80 mg PO DAILY [facility] Stop: 01/24/21 08:59 Last Admin: 12/25/20 07:50 Dose: 80 mg Documented by: Finasteride (Finasteride 5 Mg Tab) 5 mg PO DAILY [facility] Stop: 01/24/21 08:59 Last Admin: 12/25/20 07:50 Dose: 5 mg Documented by: Furosemide (Furosemide 40 Mg/4 Ml Vial) 40 mg IV DAILY [facility] Stop: 01/24/21 08:59 Last Admin: 12/25/20 07:50 Dose: 40 mg Documented by: Guaifenesin (Guaifenesin 600 Mg Tabcr) 600 mg PO Q12H PRN PRN Reason: Congestion Stop: 01/23/21 17:44 Heparin Sodium/Dextrose (Heparin Sodium/Dextrose) 25,000 units in 500 mls @ 21 mls/hr IV .[id number] [facility]; Protocol Stop: 01/23/21 20:59 Last Admin: 12/25/20 18:41 Dose: Not Given Documented by: Ceftriaxone Sodium 1,000 mg/ (Dextrose) 50 mls @ 100 mls/hr IV Q24H [facility]; Protocol Stop: 12/30/20 12:44 Last Infusion: 12/25/20 15:05 Dose: Infused Documented by: Lisinopril (Lisinopril 10 Mg Tab) 10 mg PO DAILY [facility] Stop: 01/24/21 08:59 Last Admin: 12/25/20 07:49 Dose: 10 mg Documented by: Metoprolol Tartrate (Metoprolol Tartrate 25 Mg Tab) 25 mg PO TID [facility] Stop: 01/24/21 12:14 Last Admin: 12/25/20 14:03 Dose: 25 mg Documented by: Nitroglycerin (Nitroglycerin Sl 0.4 Mg/Tab Tab) 0.4 mg SL UD PRN PRN Reason: Chest Pain Stop: 01/23/21 17:44 Pantoprazole Sodium (Pantoprazole 40 Mg Tab) 40 mg PO DAILY [facility] Stop: 01/24/21 08:59 Last Admin: 12/25/20 07:49 Dose: 40 mg Documented by: Spironolactone (Spironolactone 12.5 Mg Tab) 12.5 mg PO DAILY [facility] Stop: 01/24/21 12:14 Last Admin: 12/25/20 14:02 Dose: 12.5 mg Documented by: Terbinafine HCl (Terbinafine Hcl 250 Mg Tab) 250 mg PO DAILY [facility] Stop: 12/30/20 09:01 Last Admin: 12/25/20 07:49 Dose: 250 mg Documented by: Trazodone HCl (Trazodone Hcl 50 Mg Tab) 50 mg PO HS [facility] Stop: 01/23/21 20:59 Last Admin: 12/24/20 21:36 Dose: 50 mg Documented by: (1) Atrial fibrillation Atrial fibrillation type: paroxysmal Qualified Code(s): I48.0 - Paroxysmal atrial fibrillation
[2020-12-25] MEDS: APIXABAN 5 MG TABLET PO SCH (20:35)
[2020-12-26 05:01] LABS: Hematocrit (blood only) 41.4 % (42-52); Hemoglobin 14.2 g/dL (14.0-18.0); Mean Corpuscular Hemoglobin 29.1 pg (25-34); Mean Corpuscular Hgb Conc 34.3 g/dL (32-36); Mean Corpuscular Volume 84.8 fL (80-100); Mean Platelet Volume 8.4 fL (7.4-10.4); Platelet Count 178 K/uL (130-400); RDW Standard Deviation 46.6 fL (36.4-46.3); Red Blood Count 4.88 M/uL (4.7-6.1)
[2020-12-26 05:25] LABS: Albumin Level 2.6 gm/dl (3.4-5.0); BUN Creatinine Ratio 17.2 (10-20); Calcium 8.7 mg/dl (8.5-10.1); Creatinine Clr Calc Pharmacy 45.1 ml/min; Est GFR (African American) 60.3 ml/min; Magnesium 2.3 mg/dl (1.8-2.4); Potassium 3.2 mmol/L (3.5-5.1)
[2020-12-26 05:28] LABS: Albumin Globulin Ratio 0.7 (0.9-2); Bilirubin,Total 1.7 mg/dl (0.2-1); Globulin 3.9 gm/dl (2.5-4.0); Total Protein 6.5 gm/dl (6.4-8.2)
[2020-12-26] MEDS ORDERED: POTASSIUM CHLORIDE CRTAB 20 MEQ TABCR PO SCH (09:00)
[2020-12-26] MEDS: APIXABAN 5 MG TABLET PO SCH ×2 (10:05→21:13)
[2020-12-26] MEDS: ASPIRIN 81 MG ECTAB PO SCH (10:05)
[2020-12-26] MEDS: METOPROLOL TARTRATE 25 MG TAB PO SCH (10:05)
[2020-12-26] MEDS: terbinafine HCL 250 MG TAB PO SCH (10:06)
[2020-12-26] MEDS: ATORVASTATIN 20 MG TAB PO SCH (10:06)
[2020-12-26] MEDS: PANTOprazole 40 MG TAB PO SCH (10:06)
[2020-12-26] MEDS: lisinopril 10 MG TAB PO SCH (10:06)
[2020-12-26] MEDS: SPIRONOLACTONE 12.5 MG TAB PO SCH (10:07)
[2020-12-26] MEDS: FINASTERIDE 5 MG TAB PO SCH (10:07)
[2020-12-26] MEDS: POTASSIUM CHLORIDE CRTAB 20 MEQ TABCR PO SCH ×2 (10:09→14:14)
[2020-12-26] MEDS: FUROSEMIDE 40 MG/4 ML VIAL IV SCH (10:09)
--- NOTE | 2020-12-26 10:31 | Cardiology Progress Note ---
Date of Service December 26, 2020 Assessment & Plan (1) Heart failure, systolic, with acute decompensation: (2) Atrial fibrillation with rapid ventricular response: (3) Elevated troponin: (4) Hyponatremia: (5) Hypertensive heart disease: (6) Hypokalemia: Plan: Admission diagnoses and concerns: Acute decompensated systolic and diastolic congestive heart failure Hypervolemic hyponatremia Hypokalemia Elevated Troponin - demand ischemia due to critical illness, tachycardia/atrial fibrillation, acute decompensated systolic heart failure, left ventricular hypertrophy. Atrial fibrillation with mildly elevated ventricular response, [id number] Score of 7 points Patient appears clinically improved since admission but heart rate still elevated. Has manifested diuresis Plan: Change metoprolol tartrate to metoprolol succinate 50 mg twice per day for heart failure and heart rate control. Potassium already supplemented this morning. Spironolactone added yesterday. Continue other medications as prescribed. Treating underlying infectious processes Admission and Anticipated Discharge Date Admission Date: December 24, 2020 Subjective Patient was seen and examined, chart, medications, telemetry reviewed Mild delirium but more alert oriented this morning. Recognizes current physician by name and past history Denies any chest pain or worsening shortness of breath. Has continued to manifest diuresis Heart rate still elevated Review of Systems Review of Systems: All systems reviewed & are unremarkable except as noted in Subjective Physical Exam Physical Exam: General: A&O to person and place. HENT: Normocephalic. Atraumatic. Eyes: PER. Conjunctiva pink, sclera clear. Neck: + JVD. + HJR. Heart: Irregularly irregular around 100 bpm. Soft apical systolic murmur. Lungs: Clear anteriorly. Absent breath sounds at the bases, right more so than the left. Abdomen: +BS. Soft. Nontender. No masses or organomegaly. Extremities: 1-2+ edema. + Rash suggestive of cellulitis. No clubbing. No cyanosis Pulses: radial=2/4, posterior tibial=1/4. Results & Data ([facility]) Vital Signs (Past 12 Hours) Vital Signs Temp Pulse Pulse Resp BP BP Pulse Ox 12/26/20 09:00 36.6 C 101 H 29 H 139/97 95 12/26/20 03:00 95 H 19 143/109 H 12/26/20 00:00 91 H 12/25/20 23:00 112 H 18 131/99 Laboratory Results Laboratory Results - last 24 hr 12/25/20 12/25/20 12/26/20 10:15 17:08 04:45 WBC 7.10 RBC 4.88 Hgb 14.2 Hct 41.4 L MCV 84.8 MCH 29.1 MCHC 34.3 RDW Std Deviation 46.6 H RDW Coeff of Jb 15.0 H Plt Count 178 MPV 8.4 APTT 76.5 H* 68.6 H* PTT Ratio 2.9 2.6 Sodium Potassium Chloride Carbon Dioxide Anion Gap BUN Creatinine Est Cr Clr Drug Dosing Est GFR ( Amer) Est GFR (Non-Af Amer) BUN/Creatinine Ratio Glucose Calcium Magnesium Total Bilirubin AST ALT Alkaline Phosphatase Total Protein Albumin Globulin Albumin/Globulin Ratio 12/26/20 04:45 WBC RBC Hgb Hct MCV MCH MCHC RDW Std Deviation RDW Coeff of Jb Plt Count MPV APTT PTT Ratio Sodium 133 L Potassium 3.2 L Chloride 99 Carbon Dioxide 30 Anion Gap 4.0 BUN 22 H Creatinine 1.26 Est Cr Clr Drug Dosing 45.1 Est GFR ( Amer) 60.3 Est GFR (Non-Af Amer) 52.0 BUN/Creatinine Ratio 17.2 Glucose 101 H Calcium 8.7 Magnesium 2.3 Total Bilirubin 1.7 H AST 35 ALT 48 Alkaline Phosphatase 130 H Total Protein 6.5 Albumin 2.6 L Globulin 3.9 Albumin/Globulin Ratio 0.7 L
[2020-12-26] MEDS ORDERED: METOPROLOL SUCC 25MG EXT REL TAB PO ONE (10:38)
[2020-12-26] MEDS: cefTRIAXone SODIUM 1,000 MG in DEXTROSE 5% 50 ML IV SCH (12:52)
--- NOTE | 2020-12-26 15:01 | Hospitalist Progress Note ---
Date of Service December 26, 2020 Assessment & Plan (1) Heart failure, systolic, with acute decompensation: Plan: Elevated BNP, +anasarca on exam. Add low dose spironolactone per cardiology, changed to Toprol per cardiology in setting of elevated heart rates. Negative 0.5L overnight. Cont Lasix 40 IV daily. Ambulate with assistance as tolerated. Strict I/Os, low sodium diet, daily standing weights. (2) Pleural effusion: Plan: Cont diuresis as outlined above. No respiratory symptoms or other concerning clinical picture for pneumonia (fevers, chills, cough, etc). Consider repeat chest imaging after significant clinical response to diuresis. (3) Atrial fibrillation: Plan: Remains in persistent atrial fibrillation. Heparin converted to apixaban. Toprol now BID. Cont to titrate for improved heart rate control (4) UTI (urinary tract infection): Plan: With recent episode of ?syncope, increased forgetfulness and overall decompensation clinically will cover for bacteriuria with short course of antibiotics. Patient has a hill catheter in at this time for accurate I/Os. No fever. Ceftriaxone now, will switch to Augmentin to treat E coli. Thia antibiotic will also empirically cover any pulmonary infection or superimposed bacterial infection in the leg, neither of which appear to be an issue, but wanted to note this choice for those reasons. (5) Non-ischemic myocardial injury (non-traumatic): Plan: -Troponin 0.055 with flat trend, no accelerated rise -No reports of chest pain, EKG appears nonischemic -Likely demand ischemia in the setting of acute CHF (6) Tinea pedis: Plan: -Lower extremity exam findings consistent with tinea pedis, continues to improve. Holding trazodone and changed lipitor back to home dose 20mg daily- monitor renal functions and LFTs. Skin findings are improved. Doubt secondary cellulitis from appearance. Will cont to monitor closely. (7) History of aortic valve replacement with bioprosthetic valve: Plan: -Echo 11/11/2020 demonstrated normal aortic valve prosthesis systolic gradients. Cont daily aspirin. (8) HTN (hypertension): Plan: -BP controlled, continue lisinopril and metoprolol (9) DVT prophylaxis: Plan: apixaban Full Code Dispo-needs to be euvolemic which is not the case yet, also per PT/OT recs, likely after the weekend. Elham Tippah, DO [facility] Admission and Anticipated Discharge Date Admission Date: December 24, 2020 Physical Exam Physical Exam: CONSTITUTIONAL: WNWD, vitals as above, NAD EYES: normal conjunctivae, no scleral icterus ENT: external ear and nose normal, MMM NECK: trachea midline RESPIRATORY: clear with diminished breath sounds at bases, no crackles, rales or wheezes, normal respiratory effort, not requiring oxygen supplementation. CARDIOVASCULAR: irregular rate and rhythm, S1 and 2 heard without murmurs, gallops or rubs, no JVD, no peripheral edema GASTROINTESTINAL: soft, nontender, ND, no guarding MUSCULOSKELETAL: generalized weakness, head is normocephalic and atraumatic : Hill catheter in place. SKIN: warm and dry NEUROLOGIC: CN 2-12 grossly intact, normal cognition, normal speech, no tremor PSYCHIATRIC: alert cooperative and oriented to person, place and time. Results & Data Results & Data ([facility]) Vital Signs (Past 12 Hours) Vital Signs Temp Pulse Pulse Resp BP BP Pulse Ox 12/26/20 10:49 100 H 12/26/20 09:00 36.6 C 101 H 29 H 139/97 95 12/26/20 03:00 95 H 19 143/109 H Laboratory Results Short CBC 12/26/20 Range/Units 04:45 WBC 7.10 (4.8-10.8) K/uL Hgb 14.2 (14.0-18.0) g/dL Hct 41.4 L (42-52) % Plt Count 178 (130-400) K/uL BMP 12/26/20 04:45 Sodium 133 L Potassium 3.2 L Chloride 99 Carbon Dioxide 30 BUN 22 H Creatinine 1.26 Glucose 101 H Calcium 8.7 Liver Function 12/26/20 Range/Units 04:45 Total Bilirubin 1.7 H (0.2-1) mg/dl AST 35 (15-37) U/L ALT 48 (12-78) U/L Alkaline Phosphatase 130 H (45-117) U/L Albumin 2.6 L (3.4-5.0) gm/dl Medications Administered Current Inpatient Medications Acetaminophen (Acetaminophen 325 Mg Tab) 650 mg PO Q4H PRN PRN Reason: Pain or Fever Stop: 01/23/21 17:44 Apixaban (Apixaban 5 Mg Tablet) 5 mg PO BID [facility] Stop: 01/24/21 20:59 Last Admin: 12/26/20 10:05 Dose: 5 mg Documented by: Aspirin (Aspirin 81 Mg Ectab) 81 mg PO DAILY [facility] Stop: 01/24/21 08:59 Last Admin: 12/26/20 10:05 Dose: 81 mg Documented by: Atorvastatin Calcium (Atorvastatin 20 Mg Tab) 20 mg PO QAM [facility] Stop: 01/25/21 08:59 Last Admin: 12/26/20 10:06 Dose: 20 mg Documented by: Finasteride (Finasteride 5 Mg Tab) 5 mg PO DAILY [facility] Stop: 01/24/21 08:59 Last Admin: 12/26/20 10:07 Dose: 5 mg Documented by: Furosemide (Furosemide 40 Mg/4 Ml Vial) 40 mg IV DAILY [facility] Stop: 01/24/21 08:59 Last Admin: 12/26/20 10:09 Dose: 40 mg Documented by: Guaifenesin (Guaifenesin 600 Mg Tabcr) 600 mg PO Q12H PRN PRN Reason: Congestion Stop: 01/23/21 17:44 Ceftriaxone Sodium 1,000 mg/ (Dextrose) 50 mls @ 100 mls/hr IV Q24H [facility]; Protocol Stop: 12/30/20 12:44 Last Infusion: 12/26/20 13:49 Dose: Infused Documented by: Lisinopril (Lisinopril 10 Mg Tab) 10 mg PO DAILY [facility] Stop: 01/24/21 08:59 Last Admin: 12/26/20 10:06 Dose: 10 mg Documented by: Metoprolol Succinate (Metoprolol Succ 50mg Ext Rel Tab) 50 mg PO BID [facility] Stop: 01/25/21 20:59 Nitroglycerin (Nitroglycerin Sl 0.4 Mg/Tab Tab) 0.4 mg SL UD PRN PRN Reason: Chest Pain Stop: 01/23/21 17:44 Pantoprazole Sodium (Pantoprazole 40 Mg Tab) 40 mg PO DAILY [facility] Stop: 01/24/21 08:59 Last Admin: 12/26/20 10:06 Dose: 40 mg Documented by: Potassium Chloride (Potassium Chloride Crtab 20 Meq Tabcr) 20 meq PO QAM [facility] Stop: 01/26/21 08:59 Spironolactone (Spironolactone 12.5 Mg Tab) 12.5 mg PO DAILY [facility] Stop: 01/24/21 12:14 Last Admin: 12/26/20 10:07 Dose: 12.5 mg Documented by: Terbinafine HCl (Terbinafine Hcl 250 Mg Tab) 250 mg PO DAILY [facility] Stop: 12/30/20 09:01 Last Admin: 12/26/20 10:06 Dose: 250 mg Documented by: Trazodone HCl (Trazodone Hcl 50 Mg Tab) 50 mg PO HS [facility] Stop: 01/23/21 20:59 Last Admin: 12/24/20 21:36 Dose: 50 mg Documented by: (1) Atrial fibrillation Atrial fibrillation type: paroxysmal Qualified Code(s): I48.0 - Paroxysmal atrial fibrillation
[2020-12-26] MEDS: AMOXICILLIN/CLAVULANATE 875 MG TAB PO SCH (17:22)
[2020-12-26] MEDS: METOPROLOL SUCC 50MG EXT REL TAB PO SCH (21:13)
[2020-12-27 05:52] LABS: Hematocrit (blood only) 42.6 % (42-52); Hemoglobin 14.8 g/dL (14.0-18.0); Mean Corpuscular Hemoglobin 29.4 pg (25-34); Mean Corpuscular Hgb Conc 34.7 g/dL (32-36); Mean Corpuscular Volume 84.7 fL (80-100); Platelet Count 190 K/uL (130-400); RDW Coefficient of Variation 15.3 % (11.5-14.5); Red Blood Count 5.03 M/uL (4.7-6.1); White Blood Count 8.16 K/uL (4.8-10.8)
[2020-12-27 06:23] LABS: BUN Creatinine Ratio 23.8 (10-20); Calcium 9.1 mg/dl (8.5-10.1); Creatinine Clr Calc Pharmacy 49.8 ml/min; Est GFR (African American) 68.1 ml/min; Est GFR (Non-African American) 58.7 ml/min; Magnesium 2.4 mg/dl (1.8-2.4); Potassium 3.9 mmol/L (3.5-5.1)
[2020-12-27] MEDS: APIXABAN 5 MG TABLET PO SCH ×2 (09:42→20:18)
[2020-12-27] MEDS: ATORVASTATIN 20 MG TAB PO SCH (09:42)
[2020-12-27] MEDS: ASPIRIN 81 MG ECTAB PO SCH (09:42)
[2020-12-27] MEDS: FINASTERIDE 5 MG TAB PO SCH (09:42)
[2020-12-27] MEDS: AMOXICILLIN/CLAVULANATE 875 MG TAB PO SCH ×2 (09:42→17:40)
[2020-12-27] MEDS: terbinafine HCL 250 MG TAB PO SCH (09:42)
[2020-12-27] MEDS: POTASSIUM CHLORIDE CRTAB 20 MEQ TABCR PO SCH (09:43)
[2020-12-27] MEDS: PANTOprazole 40 MG TAB PO SCH (09:43)
[2020-12-27] MEDS: METOPROLOL SUCC 50MG EXT REL TAB PO SCH ×2 (09:43→20:18)
[2020-12-27] MEDS: lisinopril 10 MG TAB PO SCH (09:43)
[2020-12-27] MEDS: SPIRONOLACTONE 12.5 MG TAB PO SCH (09:43)
[2020-12-27] MEDS: FUROSEMIDE 40 MG/4 ML VIAL IV SCH (09:44)
--- NOTE | 2020-12-27 12:37 | Cardiology Progress Note ---
Date of Service December 27, 2020 Assessment & Plan (1) Heart failure, systolic, with acute decompensation: (2) Atrial fibrillation with rapid ventricular response: (3) Elevated troponin: (4) Hyponatremia: (5) Hypertensive heart disease: (6) Hypokalemia: Plan: Admission diagnoses and concerns: Acute decompensated systolic and diastolic congestive heart failure Hypervolemic hyponatremia Hypokalemia Elevated Troponin - demand ischemia due to critical illness, tachycardia/atrial fibrillation, acute decompensated systolic heart failure, left ventricular hypertrophy. Atrial fibrillation with mildly elevated ventricular response, [id number] Score of 7 points Patient appears clinically improved since admission but heart rate still elevated. Has manifested diuresis Plan: We will discontinue IV furosemide after morning dose today. We will give an additional dose of metoprolol succinate 25 mg this morning continue 50 mg twice daily otherwise dosing Admission and Anticipated Discharge Date Admission Date: December 24, 2020 Subjective Patient was seen and examined, chart, medications, telemetry reviewed Slowly improving. Heart rate is trending towards lower diuresis continuing Review of Systems Review of Systems: All systems reviewed & are unremarkable except as noted in Subjective Physical Exam Physical Exam: General: A&O to person and place. HENT: Normocephalic. Atraumatic. Eyes: PER. Conjunctiva pink, sclera clear. Neck: + JVD. + HJR. Heart: Irregularly irregular around 100 bpm. Soft apical systolic murmur. Lungs: Clear anteriorly. Absent breath sounds at the bases, right more so than the left. Abdomen: +BS. Soft. Nontender. No masses or organomegaly. Extremities: 1-2+ edema. + Rash suggestive of cellulitis. No clubbing. No cyanosis Pulses: radial=2/4, posterior tibial=1/4. Results & Data ([facility]) Vital Signs (Past 12 Hours) Vital Signs Temp Pulse Pulse Resp BP Pulse Ox 12/27/20 09:00 36.6 C 98 H 25 H 126/81 94 12/27/20 03:24 36.9 C 92 H 18 134/88 95 Laboratory Results Laboratory Results - last 24 hr 12/27/20 12/27/20 04:59 04:59 WBC 8.16 RBC 5.03 Hgb 14.8 Hct 42.6 MCV 84.7 MCH 29.4 MCHC 34.7 RDW Std Deviation 47.0 H RDW Coeff of Jb 15.3 H Plt Count 190 MPV 9.0 Sodium 133 L Potassium 3.9 D Chloride 100 Carbon Dioxide 27 Anion Gap 6.0 BUN 27 H Creatinine 1.14 Est Cr Clr Drug Dosing 49.8 Est GFR ( Amer) 68.1 Est GFR (Non-Af Amer) 58.7 BUN/Creatinine Ratio 23.8 H Glucose 115 H Calcium 9.1 Magnesium 2.4
[2020-12-27] MEDS ORDERED: METOPROLOL SUCC 25MG EXT REL TAB PO ONE (12:41)
--- NOTE | 2020-12-27 14:58 | Hospitalist Progress Note ---
Date of Service December 27, 2020 Assessment & Plan (1) Heart failure, systolic, with acute decompensation: Plan: Elevated BNP, still remains fluid overloaded. Low dose spironolactone per cardiology added this admission, additional Toprol change with improvement in heart rate. Negative 1.4L overnight. Cont furosemide. Ambulate with assistance as tolerated. Strict I/Os, low sodium diet, daily standing weights. (2) Pleural effusion: Plan: Cont diuresis as outlined above. No respiratory symptoms or other concerning clinical picture for pneumonia (fevers, chills, cough, etc). Consider repeat chest imaging after significant clinical response to diuresis. (3) Atrial fibrillation: Plan: Remains in persistent atrial fibrillation. Heparin converted to apixaban. Toprol now BID. Cont to titrate for improved heart rate control (4) UTI (urinary tract infection): Plan: With recent episode of ?syncope, increased forgetfulness and overall decompensation clinically will cover for bacteriuria with short course of antibiotics. Cont Augmentin. He appears improved. (5) Non-ischemic myocardial injury (non-traumatic): Plan: -Troponin 0.055 with flat trend, no accelerated rise -No reports of chest pain, EKG appears nonischemic -Likely demand ischemia in the setting of acute CHF (6) Tinea pedis: Plan: -Lower extremity exam findings consistent with tinea pedis, continues to improve. Holding trazodone and changed lipitor back to home dose 20mg daily- monitor renal functions and LFTs. Skin findings are improved. Doubt secondary cellulitis from appearance. Will cont to monitor closely. (7) History of aortic valve replacement with bioprosthetic valve: Plan: -Echo 11/11/2020 demonstrated normal aortic valve prosthesis systolic gradients. Cont daily aspirin. (8) HTN (hypertension): Plan: -BP controlled, continue lisinopril and metoprolol (9) DVT prophylaxis: Plan: apixaban Full Code Dispo-cont PCU, referral to [facility]. I updated son and DIL at bedside. Care plan reviewed and all questions answered to their satisfaction. Elham Thomas DO [facility] Hospitalist Admission and Anticipated Discharge Date Admission Date: December 24, 2020 Subjective 85 yo M admitted for fluid overload. Denies SOB, chest pain Appears clinically improved. 1.4L net diuresis overnight with current medications. No oxygen needs. Spoke with family at bedside for an update. Also called by phone and LM Review of Systems Review of Systems: All systems reviewed & are unremarkable except as noted in Subjective Physical Exam Physical Exam: CONSTITUTIONAL: WNWD, vitals as above, NAD EYES: normal conjunctivae, no scleral icterus ENT: external ear and nose normal, MMM NECK: trachea midline RESPIRATORY: clear with diminished breath sounds at bases, no crackles, rales or wheezes, normal respiratory effort, not requiring oxygen supplementation. CARDIOVASCULAR: irregular rate and rhythm, S1 and 2 heard without murmurs, gallops or rubs, no JVD, 1+ peripheral edema bilaterally GASTROINTESTINAL: soft, nontender, ND, no guarding MUSCULOSKELETAL: generalized weakness, head is normocephalic and atraumatic : Herrera catheter in place. SKIN: warm and dry, erythema in lower extremities is improved on current thera py. NEUROLOGIC: CN 2-12 grossly intact, normal cognition, normal speech, no tremor PSYCHIATRIC: alert cooperative and oriented to person, place and time. Results & Data Results & Data ([facility]) Vital Signs (Past 12 Hours) Vital Signs Temp Pulse Pulse Resp BP Pulse Ox 12/27/20 12:50 36.5 C 90 18 115/69 93 12/27/20 09:00 36.6 C 98 H 25 H 126/81 94 12/27/20 03:24 36.9 C 92 H 18 134/88 95 Laboratory Results Short CBC 12/27/20 Range/Units 04:59 WBC 8.16 (4.8-10.8) K/uL Hgb 14.8 (14.0-18.0) g/dL Hct 42.6 (42-52) % Plt Count 190 (130-400) K/uL BMP 12/27/20 04:59 Sodium 133 L Potassium 3.9 D Chloride 100 Carbon Dioxide 27 BUN 27 H Creatinine 1.14 Glucose 115 H Calcium 9.1 Medications Administered Current Inpatient Medications Acetaminophen (Acetaminophen 325 Mg Tab) 650 mg PO Q4H PRN PRN Reason: Pain or Fever Stop: 01/23/21 17:44 Amoxicillin/Clavulanate Potassium (Amoxicillin/Clavulanate 875 Mg Tab) 1 tab PO BIDM [facility]; Protocol Stop: 12/31/20 16:59 Last Admin: 12/27/20 09:42 Dose: 1 tab Documented by: Apixaban (Apixaban 5 Mg Tablet) 5 mg PO BID DANIEL Stop: 01/24/21 20:59 Last Admin: 12/27/20 09:42 Dose: 5 mg Documented by: Aspirin (Aspirin 81 Mg Ectab) 81 mg PO DAILY DANIEL Stop: 01/24/21 08:59 Last Admin: 12/27/20 09:42 Dose: 81 mg Documented by: Atorvastatin Calcium (Atorvastatin 20 Mg Tab) 20 mg PO QAM DANIEL Stop: 01/25/21 08:59 Last Admin: 12/27/20 09:42 Dose: 20 mg Documented by: Finasteride (Finasteride 5 Mg Tab) 5 mg PO DAILY DANIEL Stop: 01/24/21 08:59 Last Admin: 12/27/20 09:42 Dose: 5 mg Documented by: Furosemide (Furosemide 40 Mg/4 Ml Vial) 40 mg IV DAILY DANIEL Stop: 01/24/21 08:59 Last Admin: 12/27/20 09:44 Dose: 40 mg Documented by: Guaifenesin (Guaifenesin 600 Mg Tabcr) 600 mg PO Q12H PRN PRN Reason: Congestion Stop: 01/23/21 17:44 Lisinopril (Lisinopril 10 Mg Tab) 10 mg PO DAILY DANIEL Stop: 01/24/21 08:59 Last Admin: 12/27/20 09:43 Dose: 10 mg Documented by: Metoprolol Succinate (Metoprolol Succ 50mg Ext Rel Tab) 50 mg PO BID DANIEL Stop: 01/25/21 20:59 Last Admin: 12/27/20 09:43 Dose: 50 mg Documented by: Nitroglycerin (Nitroglycerin Sl 0.4 Mg/Tab Tab) 0.4 mg SL UD PRN PRN Reason: Chest Pain Stop: 01/23/21 17:44 Pantoprazole Sodium (Pantoprazole 40 Mg Tab) 40 mg PO DAILY DANIEL Stop: 01/24/21 08:59 Last Admin: 12/27/20 09:43 Dose: 40 mg Documented by: Potassium Chloride (Potassium Chloride Crtab 20 Meq Tabcr) 20 meq PO QAM DANIEL Stop: 01/26/21 08:59 Last Admin: 12/27/20 09:43 Dose: 20 meq Documented by: Spironolactone (Spironolactone 12.5 Mg Tab) 12.5 mg PO DAILY DANIEL Stop: 01/24/21 12:14 Last Admin: 12/27/20 09:43 Dose: 12.5 mg Documented by: Terbinafine HCl (Terbinafine Hcl 250 Mg Tab) 250 mg PO DAILY DANIEL Stop: 12/30/20 09:01 Last Admin: 12/27/20 09:42 Dose: 250 mg Documented by: Trazodone HCl (Trazodone Hcl 50 Mg Tab) 50 mg PO HS DANIEL Stop: 01/23/21 20:59 Last Admin: 12/24/20 21:36 Dose: 50 mg Documented by: (1) Atrial fibrillation Atrial fibrillation type: paroxysmal Qualified Code(s): I48.0 - Paroxysmal atrial fibrillation
--- NOTE | 2020-12-27 23:08 | Electrocardiogram Report ---
Test Reason : Blood Pressure : / mmHG Vent. Rate : 093 BPM Atrial Rate : 079 BPM P-R Int : 000 ms QRS Dur : 084 ms QT Int : 416 ms P-R-T Axes : 000 -42 158 degrees QTc Int : 518 ms Atrial fibrillation Left axis deviation Low voltage QRS Nonspecific ST and T wave abnormality Prolonged QT Abnormal ECG When compared with ECG of 25-DEC-2020 05:03, No significant change Confirmed by Mohan Whitehead ([id number]) on 12/27/2020 11:08:45 PM Referred By: Bucky Murray Confirmed By:Mohan Whitehead
[2020-12-28 07:03] LABS: Hematocrit (blood only) 44.2 % (42-52); Hemoglobin 15.3 g/dL (14.0-18.0); Mean Corpuscular Hemoglobin 29.4 pg (25-34); Mean Corpuscular Hgb Conc 34.6 g/dL (32-36); Mean Corpuscular Volume 84.8 fL (80-100); Mean Platelet Volume 8.8 fL (7.4-10.4); Platelet Count 183 K/uL (130-400); RDW Coefficient of Variation 15.3 % (11.5-14.5); RDW Standard Deviation 47.2 fL (36.4-46.3); Red Blood Count 5.21 M/uL (4.7-6.1); White Blood Count 8.53 K/uL (4.8-10.8)
[2020-12-28 07:32] LABS: BUN Creatinine Ratio 22.4 (10-20); Calcium 9.5 mg/dl (8.5-10.1); Creatinine Clr Calc Pharmacy 51.2 ml/min; Est GFR (African American) 70.3 ml/min; Est GFR (Non-African American) 60.7 ml/min; Magnesium 2.4 mg/dl (1.8-2.4)
[2020-12-28] MEDS: ATORVASTATIN 20 MG TAB PO SCH (09:08)
[2020-12-28] MEDS: POTASSIUM CHLORIDE CRTAB 20 MEQ TABCR PO SCH (09:08)
[2020-12-28] MEDS: APIXABAN 5 MG TABLET PO SCH ×2 (09:08→20:38)
[2020-12-28] MEDS: FINASTERIDE 5 MG TAB PO SCH (09:08)
[2020-12-28] MEDS: AMOXICILLIN/CLAVULANATE 875 MG TAB PO SCH ×2 (09:08→16:55)
[2020-12-28] MEDS: lisinopril 10 MG TAB PO SCH (09:09)
[2020-12-28] MEDS: PANTOprazole 40 MG TAB PO SCH (09:09)
[2020-12-28] MEDS: terbinafine HCL 250 MG TAB PO SCH (09:09)
[2020-12-28] MEDS: SPIRONOLACTONE 12.5 MG TAB PO SCH (09:09)
[2020-12-28] MEDS: ASPIRIN 81 MG ECTAB PO SCH (09:09)
[2020-12-28] MEDS: METOPROLOL SUCC 50MG EXT REL TAB PO SCH ×2 (09:10→20:38)
[2020-12-28] MEDS ORDERED: FUROSEMIDE 40 MG/4 ML VIAL IV ONE (11:29)
--- NOTE | 2020-12-28 11:51 | Cardiology Progress Note ---
Date of Service December 28, 2020 Assessment & Plan (1) Heart failure, systolic, with acute decompensation: (2) Atrial fibrillation with rapid ventricular response: (3) Elevated troponin: (4) Hyponatremia: (5) Hypertensive heart disease: (6) Hypokalemia: Plan: Admission diagnoses and concerns: Acute decompensated systolic and diastolic congestive heart failure Hypervolemic hyponatremia Hypokalemia Elevated Troponin - demand ischemia due to critical illness, tachycardia/atrial fibrillation, acute decompensated systolic heart failure, left ventricular hypertrophy. Atrial fibrillation with mildly elevated ventricular response, [id number] Score of 7 points Patient appears clinically improved since admission edema resolved heart rate better controlled Plan: Continue current metoprolol succinate dosing. Oral furosemide ordered at 40 mg/day in addition to spironolactone and potassium Continue mobilize Admission and Anticipated Discharge Date Admission Date: December 24, 2020 Subjective Patient was seen and examined, chart, medications, telemetry reviewed Continues to demonstrate improvement. Lower extremity edema nearly resolved. No dizziness or lightheadedness no tachypalpitations. Blood pressure well controlled. No fevers or chills Review of Systems Review of Systems: All systems reviewed & are unremarkable except as noted in Subjective Physical Exam 2 Constitutional: + thin; no acute distress Eyes: PERRL, conjunctivae normal, anicteric sclerae ENMT: external ear and nose normal, oropharynx normal Neck: trachea midline, no thyromegaly Respiratory: normal respiratory effort, lungs clear to auscultation Cardiovascular: Rate/Rhythm: regular rate and regular rhythm Results & Data ([facility]) Vital Signs (Past 12 Hours) Vital Signs Temp Pulse Pulse Resp BP Pulse Ox 12/28/20 11:29 36.7 C 70 18 108/64 95 12/28/20 07:39 36.5 C 85 18 127/86 95 12/28/20 04:10 36.4 C L 68 18 125/91 95
[2020-12-28] MEDS: FUROSEMIDE 40 MG TAB PO SCH (12:41)
--- NOTE | 2020-12-29 08:49 | Hospitalist Progress Note ---
Date of Service December 28, 2020 Assessment & Plan (1) Heart failure, systolic, with acute decompensation: Plan: Elevated BNP, still remains fluid overloaded although improved. Low dose spironolactone per cardiology added this admission, additional Toprol change wi th improvement in heart rate. Cont furosemide. Ambulate with assistance as tolerated. Strict I/Os, low sodium diet, daily standing weights. (2) Pleural effusion: Plan: Cont diuresis as outlined above. No respiratory symptoms or other concerning clinical picture for pneumonia (fevers, chills, cough, etc). Consider repeat chest imaging after significant clinical response to diuresis. (3) Atrial fibrillation: Plan: Remains in persistent atrial fibrillation. Cont apixaban and Toprol (4) UTI (urinary tract infection): Plan: With recent episode of ?syncope, increased forgetfulness and overall decompensation clinically will cover for bacteriuria with short course of antibiotics. Cont Augmentin. He appears improved. (5) Non-ischemic myocardial injury (non-traumatic): Plan: -Troponin 0.055 with flat trend, no accelerated rise -No reports of chest pain, EKG appears nonischemic -Likely demand ischemia in the setting of acute CHF (6) Tinea pedis: Plan: -Lower extremity exam findings consistent with tinea pedis, continues to improve. Holding trazodone and changed lipitor back to home dose 20mg daily- monitor renal functions and LFTs. Skin findings are improved. Doubt secondary cellulitis from appearance. Will cont to monitor closely. (7) History of aortic valve replacement with bioprosthetic valve: Plan: -Echo 11/11/2020 demonstrated normal aortic valve prosthesis systolic gradients. Cont daily aspirin. (8) HTN (hypertension): Plan: -BP controlled, continue lisinopril and metoprolol (9) DVT prophylaxis: Plan: apixaban Full Code Dispo-cont PCU, referral to [facility]. Will discuss transition plan further with his . Rehab recommended. Elham Thomas DO [facility] Hospitalist Admission and Anticipated Discharge Date Admission Date: December 24, 2020 Subjective 85 yo M admitted with heart failure exacerbation with underlying new atrial fibrillation in last couple of months Doing well on anticoauglation Denies pain Feels less swollen. Not much diuresis overnight although he is net negative, gave additional furosemide 40mg IV now eating well denies SOB, cough, chest pain denies fevers or chills reporting that he wants to retunr home-wasn't aware there was a referral in for rehab. Review of Systems Review of Systems: All systems were reviewed and negative except as indicated in subjective above. Physical Exam Physical Exam: CONSTITUTIONAL: WNWD, vitals stable, NAD EYES: normal conjunctivae, no scleral icterus ENT: external ear and nose normal, MMM NECK: trachea midline RESPIRATORY: diminished breath sounds bilaterally, no crackles, rales or wheezes, normal respiratory effort, not requiring oxygen supplementation. Exam limited by patient unable to follow instructions well to take nice big breaths and not make upper airway sounds with breaths. CARDIOVASCULAR: irregular rate and rhythm, S1 and 2 heard without murmurs, gallops or rubs, no JVD, 1+ peripheral edema bilaterally GASTROINTESTINAL: soft, nontender, ND, no guarding MUSCULOSKELETAL: generalized weakness, head is normocephalic and atraumatic : Herrera catheter in place. SKIN: warm and dry, erythema in lower extremities is improved on current therapy. NEUROLOGIC: CN 2-12 grossly intact, normal cognition, normal speech, no tremor PSYCHIATRIC: alert cooperative and oriented to person, place and time. Appears more alert and with it today. Results & Data Results & Data ([facility]) Vital Signs (Past 12 Hours) Vital Signs Temp Pulse Pulse Pulse Resp BP BP 12/29/20 08:03 36.7 C 83 19 126/82 12/29/20 04:00 35.4 C L 86 16 122/72 12/29/20 00:10 36.9 C 88 18 147/99 H 12/28/20 23:00 91 H Pulse Ox 12/29/20 08:03 95 12/29/20 04:00 95 12/29/20 00:10 96 12/28/20 23:00 (1) Atrial fibrillation Atrial fibrillation type: paroxysmal Qualified Code(s): I48.0 - Paroxysmal atrial fibrillation
[2020-12-29] MEDS: SPIRONOLACTONE 12.5 MG TAB PO SCH (09:18)
[2020-12-29] MEDS: ASPIRIN 81 MG ECTAB PO SCH (09:18)
[2020-12-29] MEDS: AMOXICILLIN/CLAVULANATE 875 MG TAB PO SCH (09:18)
[2020-12-29] MEDS: lisinopril 10 MG TAB PO SCH (09:18)
[2020-12-29] MEDS: APIXABAN 5 MG TABLET PO SCH (09:19)
[2020-12-29] MEDS: ATORVASTATIN 20 MG TAB PO SCH (09:19)
[2020-12-29] MEDS: PANTOprazole 40 MG TAB PO SCH (09:19)
[2020-12-29] MEDS: FINASTERIDE 5 MG TAB PO SCH (09:19)
[2020-12-29] MEDS: METOPROLOL SUCC 50MG EXT REL TAB PO SCH (09:19)
[2020-12-29] MEDS: FUROSEMIDE 40 MG TAB PO SCH (09:19)
[2020-12-29] MEDS: terbinafine HCL 250 MG TAB PO SCH (09:19)
[2020-12-29] MEDS: POTASSIUM CHLORIDE CRTAB 20 MEQ TABCR PO SCH (09:28)
[2020-12-29 10:17] LABS: Albumin Level 2.9 gm/dl (3.4-5.0); BUN Creatinine Ratio 18.4 (10-20); Calcium 9.2 mg/dl (8.5-10.1); Creatinine Clr Calc Pharmacy 45.8 ml/min; Est GFR (African American) 61.5 ml/min; Est GFR (Non-African American) 53.1 ml/min; Magnesium 2.4 mg/dl (1.8-2.4); Potassium 3.7 mmol/L (3.5-5.1)
[2020-12-29 10:19] LABS: Albumin Globulin Ratio 0.7 (0.9-2); Bilirubin,Total 1.7 mg/dl (0.2-1); Globulin 4.3 gm/dl (2.5-4.0); Total Protein 7.2 gm/dl (6.4-8.2)
--- NOTE | 2020-12-29 10:54 | XRay Report ---
XR chest 1V portable CLINICAL HISTORY: re-eval pleurla effusions TECHNIQUE: Single frontal radiograph of the chest was obtained. Comparison: Comparison is made to chest one view 12/24/2020 FINDINGS: Intact median sternotomy wires are unchanged. The cardiomediastinal silhouette is normal. Interval de crease in size of right pleural effusion, now small to moderate in size. Stable small left pleural ef fusion. IMPRESSION: Interval decrease in size of pleural effusions, small on the left and [id number] on the right. Associated atelectasis is seen. ACT 112: Negative or not required by law. Electronically signed by: Michael Davies M.D. 12/29/2020 10:53 AM
--- NOTE | 2020-12-29 10:54 | Cardiology Progress Note ---
Date of Service December 29, 2020 Assessment & Plan (1) Heart failure, systolic, with acute decompensation: (2) Atrial fibrillation with rapid ventricular response: (3) Elevated troponin: (4) Hyponatremia: (5) Hypertensive heart disease: (6) Hypokalemia: Plan: Admission diagnoses and concerns: Acute decompensated systolic and diastolic congestive heart failure Hypervolemic hyponatremia Hypokalemia Elevated Troponin - demand ischemia due to critical illness, tachycardia/atrial fibrillation, acute decompensated systolic heart failure, left ventricular hypertrophy. Atrial fibrillation with mildly elevated ventricular response, [id number] Score of 7 points Patient appears clinically improved since admission edema resolved heart rate better controlled Stable for discharge. Would recommend discharging on following meds ASA 81 mg daily, Eliquis 5 mg BID, Atorvastatin 20 mg daily, Furosemide 40 mg daily, lisinopril 10 mg daily, Metoprolol succinate 50 mg BID, spironolactone 12.5 mg daily. Recommend f/u BMP in 3-5 days to monitor renal function and electrolytes. Will need approx 2 week cardiology follow up at [facility]. Cardio office will call with this appointment. Encounter placed in [facility]. Primary sdet is Dr. Mar. Case discussed with Dr. Brown Admission and Anticipated Discharge Date Admission Date: December 24, 2020 Supervising Physician Co-Signing Physician Notes Patient was seen and examined, chart, medications telemetry reviewed. Assessment as above. Patient has made improvement. Initial cellulitis likely contributed to patient's acute decline, delirium now clinically stable from cardiac standpoint Subjective Patient resting in chair comfortably. Ambulating in room with walker and no complaints of dizziness, dyspnea. No chest pain. Cough improved. Tolerating medications. Anxious for discharge. Voices no complaints at this time. Review of Systems Review of Systems: All systems reviewed & are unremarkable except as noted in HPI & below Physical Exam Constitutional: + thin; no acute distress Eyes: PERRL, conjunctivae normal, anicteric sclerae ENMT: external ear and nose normal, oropharynx normal Neck: trachea midline, no thyromegaly Respiratory: normal respiratory effort, lungs clear to auscultation Cardiovascular: Rate/Rhythm: + irregularly irregular Heart Sounds: normal S1 and normal S2; no murmur Extremities: + edema (1+ right pedal and ankle edema; No significant edema on left. C ) Gastrointestinal (Abdomen): normal bowel sounds, soft, nontender, no hepatosplenomegaly Skin: no rashes, warm and dry Neurologic: PERRL, EOMI, accommodation nl, no face palsy, no dysarthria Psychiatric: A+Ox3, euthymic affect Results & Data ([facility]) Vital Signs (Past 12 Hours) Vital Signs Temp Pulse Pulse Pulse Resp BP BP 12/29/20 08:03 36.7 C 83 19 126/82 12/29/20 04:00 35.4 C L 86 16 122/72 12/29/20 00:10 36.9 C 88 18 147/99 H 12/28/20 23:00 91 H Pulse Ox 12/29/20 08:03 95 12/29/20 04:00 95 12/29/20 00:10 96 12/28/20 23:00 Laboratory Results 12/29/20 Range/Units 09:22 Sodium 134 L (136-145) mmol/L Potassium 3.7 (3.5-5.1) mmol/L Chloride 101 (98-107) mmol/L Carbon Dioxide 30 (21-32) mmol/L Anion Gap 3.0 (3-11) BUN 23 H (7-18) mg/dl Creatinine 1.24 (0.6-1.4) mg/dl Est Cr Clr Drug Dosing 45.8 ml/min Est GFR ( Amer) 61.5 ml/min Est GFR (Non-Af Amer) 53.1 ml/min BUN/Creatinine Ratio 18.4 (10-20) Glucose 163 H (70-99) mg/dl Calcium 9.2 (8.5-10.1) mg/dl Magnesium 2.4 (1.8-2.4) mg/dl Total Bilirubin 1.7 H (0.2-1) mg/dl AST 55 H (15-37) U/L ALT 72 (12-78) U/L Alkaline Phosphatase 132 H (45-117) U/L Total Protein 7.2 (6.4-8.2) gm/dl Albumin 2.9 L (3.4-5.0) gm/dl Globulin 4.3 H (2.5-4.0) gm/dl Albumin/Globulin Ratio 0.7 L (0.9-2) Diagnostic Findings Telemetry reviewed - Atrial fibrillation with controlled rates.
--- NOTE | 2020-12-29 13:36 | Hospitalist Progress Note ---
Date of Service December 29, 2020 Assessment & Plan (1) Heart failure, systolic, with acute decompensation: Plan: More compensated at this point. Significant diuresis so far in this hospital stay and patient feeling better. Low dose spironolactone per cardiology added this admission, additional Toprol change with improvement in heart rate. Cont furosemide. Ambulate with assistance as tolerated. Strict I/Os, low sodium diet, daily standing weights. (2) Pleural effusion: Plan: Cont diuresis efforts per Cards. No respiratory symptoms or other concerning clinical picture for pneumonia (fevers, chills, cough, etc). (3) Atrial fibrillation: Plan: Remains in persistent atrial fibrillation. Cont apixaban and Toprol (4) UTI (urinary tract infection): Plan: With recent episode of ?syncope, increased forgetfulness and overall decompensation clinically will cover for bacteriuria with short course of antibiotics. Cont Augmentin. He appears improved. (5) Non-ischemic myocardial injury (non-traumatic): Plan: -Troponin 0.055 with flat trend, no accelerated rise -No reports of chest pain, EKG appears nonischemic -Likely demand ischemia in the setting of acute CHF (6) Tinea pedis: Plan: -Lower extremity exam findings consistent with tinea pedis, continues to improve. Holding trazodone and changed lipitor back to home dose 20mg daily- monitor renal functions and LFTs. Skin findings are improved. Doubt secondary cellulitis from appearance. Will cont to monitor closely. (7) History of aortic valve replacement with bioprosthetic valve: Plan: -Echo 11/11/2020 demonstrated normal aortic valve prosthesis systolic gradients. Cont daily aspirin. (8) HTN (hypertension): Plan: -BP controlled, continue lisinopril and metoprolol (9) DVT prophylaxis: Plan: apixaban Full Code Dispo-cont PCU, referral to [facility]. Will discuss transition plan further with his . Rehab recommended. Elham Thomas DO [facility] Hospitalist Admission and Anticipated Discharge Date Admission Date: December 24, 2020 Subjective 85 yo M admitted with heart failure exacerbation with underlying new atrial fibrillation in last couple of months Doing well on anticoagulation Denies pain eating well denies SOB, cough, chest pain denies fevers or chills eager to go home Review of Systems Review of Systems: All systems were reviewed and negative except as indicated in subjective above. Physical Exam Physical Exam: CONSTITUTIONAL: WNWD, vitals stable, NAD EYES: normal conjunctivae, no scleral icterus ENT: external ear and nose normal, MMM NECK: trachea midline RESPIRATORY: diminished breath sounds bilaterally, no crackles, rales or wheezes, normal respiratory effort, not requiring oxygen supplementation. Exam limited by patient unable to follow instructions well to take nice big breaths and not make upper airway sounds with breaths. CARDIOVASCULAR: irregular rate and rhythm, S1 and 2 heard without murmurs, gallops or rubs, no JVD, 1+ peripheral edema bilaterally GASTROINTESTINAL: soft, nontender, ND, no guarding MUSCULOSKELETAL: generalized weakness, head is normocephalic and atraumatic : Herrera catheter in place. SKIN: warm and dry, erythema in lower extremities is improved on current therapy. NEUROLOGIC: CN 2-12 grossly intact, normal cognition, normal speech, no tremor PSYCHIATRIC: alert cooperative and oriented to person, place and time. Appears more alert and with it today. Results & Data Results & Data ([facility]) Vital Signs (Past 12 Hours) Vital Signs Temp Pulse Pulse Pulse Resp BP BP 12/29/20 11:48 36.9 C 74 19 118/78 12/29/20 08:03 36.7 C 83 19 126/82 12/29/20 08:00 78 12/29/20 04:00 35.4 C L 86 16 122/72 Pulse Ox 12/29/20 11:48 94 12/29/20 08:03 95 12/29/20 08:00 12/29/20 04:00 95 Laboratory Results BMP 12/29/20 09:22 Sodium 134 L Potassium 3.7 Chloride 101 Carbon Dioxide 30 BUN 23 H Creatinine 1.24 Glucose 163 H Calcium 9.2 Liver Function 12/29/20 Range/Units 09:22 Total Bilirubin 1.7 H (0.2-1) mg/dl AST 55 H (15-37) U/L ALT 72 (12-78) U/L Alkaline Phosphatase 132 H (45-117) U/L Albumin 2.9 L (3.4-5.0) gm/dl Diagnostic Findings Chest X-Ray 12/29/20 09:04 XR chest 1V portable CLINICAL HISTORY: re-eval pleurla effusions TECHNIQUE: Single frontal radiograph of the chest was obtained. Comparison: Comparison is made to chest one view 12/24/2020 FINDINGS: Intact median sternotomy wires are unchanged. The cardiomediastinal silhouette is normal. Interval decrease in size of right pleural effusion, now small to moderate in size. Stable small left pleural effusion. IMPRESSION: Interval decrease in size of pleural effusions, small on the left and [id number] on the right. Associated atelectasis is seen. ACT 112: Negative or not required by law. Electronically signed by: Michael Davies M.D. 12/29/2020 10:53 AM Medications Administered Current Inpatient Medications Acetaminophen (Acetaminophen 325 Mg Tab) 650 mg PO Q4H PRN PRN Reason: Pain or Fever Stop: 01/23/21 17:44 Amoxicillin/Clavulanate Potassium (Amoxicillin/Clavulanate 875 Mg Tab) 1 tab PO BIDM [facility]; Protocol Stop: 12/31/20 16:59 Last Admin: 12/29/20 09:18 Dose: 1 tab Documented by: Apixaban (Apixaban 5 Mg Tablet) 5 mg PO BID [facility] Stop: 01/24/21 20:59 Last Admin: 12/29/20 09:19 Dose: 5 mg Documented by: Aspirin (Aspirin 81 Mg Ectab) 81 mg PO DAILY [facility] Stop: 01/24/21 08:59 Last Admin: 12/29/20 09:18 Dose: 81 mg Documented by: Atorvastatin Calcium (Atorvastatin 20 Mg Tab) 20 mg PO QAM [facility] Stop: 01/25/21 08:59 Last Admin: 12/29/20 09:19 Dose: 20 mg Documented by: Finasteride (Finasteride 5 Mg Tab) 5 mg PO DAILY [facility] Stop: 01/24/21 08:59 Last Admin: 12/29/20 09:19 Dose: 5 mg Documented by: Furosemide (Furosemide 40 Mg/4 Ml Vial) 40 mg IV DAILY [facility] Stop: 01/24/21 08:59 Last Admin: 12/27/20 09:44 Dose: 40 mg Documented by: Furosemide (Furosemide 40 Mg Tab) 40 mg PO QAM [facility] Stop: 01/27/21 11:59 Last Admin: 12/29/20 09:19 Dose: 40 mg Documented by: Guaifenesin (Guaifenesin 600 Mg Tabcr) 600 mg PO Q12H PRN PRN Reason: Congestion Stop: 01/23/21 17:44 Lisinopril (Lisinopril 10 Mg Tab) 10 mg PO DAILY [facility] Stop: 01/24/21 08:59 Last Admin: 12/29/20 09:18 Dose: 10 mg Documented by: Metoprolol Succinate (Metoprolol Succ 50mg Ext Rel Tab) 50 mg PO BID [facility] Stop: 01/25/21 20:59 Last Admin: 12/29/20 09:19 Dose: 50 mg Documented by: Nitroglycerin (Nitroglycerin Sl 0.4 Mg/Tab Tab) 0.4 mg SL UD PRN PRN Reason: Chest Pain Stop: 01/23/21 17:44 Pantoprazole Sodium (Pantoprazole 40 Mg Tab) 40 mg PO DAILY [facility] Stop: 01/24/21 08:59 Last Admin: 12/29/20 09:19 Dose: 40 mg Documented by: Potassium Chloride (Potassium Chloride Crtab 20 Meq Tabcr) 20 meq PO QAM [facility] Stop: 01/26/21 08:59 Last Admin: 12/29/20 09:28 Dose: 20 meq Documented by: Spironolactone (Spironolactone 12.5 Mg Tab) 12.5 mg PO DAILY [facility] Stop: 01/24/21 12:14 Last Admin: 12/29/20 09:18 Dose: 12.5 mg Documented by: Terbinafine HCl (Terbinafine Hcl 250 Mg Tab) 250 mg PO DAILY [facility] Stop: 12/30/20 09:01 Last Admin: 12/29/20 09:19 Dose: 250 mg Documented by: Trazodone HCl (Trazodone Hcl 50 Mg Tab) 50 mg PO HS [facility] Stop: 01/23/21 20:59 Last Admin: 12/24/20 21:36 Dose: 50 mg Documented by: (1) Atrial fibrillation Atrial fibrillation type: paroxysmal Qualified Code(s): I48.0 - Paroxysmal atrial fibrillation
--- NOTE | 2020-12-29 14:15 | Discharge Summary ---
Date of Service December 29, 2020 Admission HPI Per Admitting Provider 85-year-old male with PMH HTN, CKD stage III, history of CVA, BPH s/p TURP, bioprosthetic aortic valve replacement in 2005, and other problems to below who presents to the ED for evaluation of bilateral lower extremity swelling. On 11/11/2020, patient had routine echocardiogram and was found to be in atrial flutter. Patient was evaluated by cardiology and atenolol was changed to metoprolol and patient was started on Eliquis. Patient had a follow-up appointment on 12/01/2020 with cardiology. The plan was for patient to be anticoagulated for several weeks and then return for possible cardioversion. Unfortunately, patient had a couple of falls and was deemed to not be an anticoagulation candidate. Patient notes worsening lower extremity edema over the past few weeks. Also has had about a 20 pound weight gain. Patient had some nasal and chest congestion which improved after starting Mucinex. Patient reports he has intermittent episodes of shortness of breath which he attributes to anxiety. He also reports having very restless sleep over the past week but denies orthopnea. Patient was seen in the ED yesterday and diagnosed with bilateral lower extremity cellulitis and discharged home on doxycycline. Patient reports an episode yesterday that while sitting at the table having breakfast he had a brief moment where his head fell forward and hit the table. He believes he may have passed out briefly. He did not tell his about this episode until now. Patient was seen in PCPs office today for follow-up and due to significant lower extremity edema, he was referred back to the ED. Patient denies any episodes of chest pain. No fevers or chills. Denies dysuria and other urinary symptoms. In the ED, labs show troponin 0.055, proBNP 7100. CXR shows bilateral pleural effusions, right greater than left. Patient is hemodynamically stable and saturating well on room air. He received Lasix 40 mg IV. Admission Exam Per Admitting Provider Constitutional: WD/WN, vitals as above Eyes: PERRL, conjunctivae normal, anicteric sclerae ENMT: external ear and nose normal, oropharynx normal Respiratory: normal respiratory effort; no respiratory distress Auscultation: + diminished lung sounds Cardiovascular: Rate/Rhythm: regular rate and + irregularly irregular Vessels: normal peripheral pulses Extremities: + edema Bilateral lower extremity +2 to +3 pitting edema extending up to patient's flank, anasarca present Gastrointestinal (Abdomen): normal bowel sounds, soft, nontender, no hepatosplenomegaly Inspection/Auscultation: + abdomen distended Musculoskeletal: no cyanosis or clubbing, extremities motor strength 5/5 Skin: + rash Raised, reddened areas noted ove r bilateral anterior shins, R > L; dry, cracked, flaky skin BL feet Neurologic: PERRL, EOMI, accommodation nl, no face palsy, no dysarthria moves all extremities and awake; no focal motor deficits Motor/Sensory: no pronator drift Cranial Nerves: normal facial strength, tongue midline and able to elevate shoulders bilaterally Coordination: normal [id number] test Psychiatric: A+Ox3, euthymic affect forgetful Principal Diagnosis Heart failure, systolic, acute decompensation Pleural effusion atrial fibrillation UTI Nonischemic myocardial injury Tinea pedis Ambulatory dysfunction Discharge Exam CONSTITUTIONAL: WNWD, vitals stable, NAD EYES: normal conjunctivae, no scleral icterus ENT: external ear and nose normal, MMM NECK: trachea midline RESPIRATORY: diminished breath sounds bilaterally, no crackles, rales or wheezes, normal respiratory effort, not requiring oxygen supplementation. Exam limited by patient unable to follow instructions well to take nice big breaths and not make upper airway sounds with breaths. CARDIOVASCULAR: irregular rate and rhythm, S1 and 2 heard without murmurs, gallops or rubs, no JVD, 1+ peripheral edema bilaterally GASTROINTESTINAL: soft, nontender, ND, no guarding MUSCULOSKELETAL: generalized weakness, head is normocephalic and atraumatic : Herrera catheter in place. SKIN: warm and dry, erythema in lower extremities is improved on current therapy. NEUROLOGIC: CN 2-12 grossly intact, normal cognition, normal speech, no tremor PSYCHIATRIC: alert cooperative and oriented to person, place and time. Appears more alert and with it today. Discharge Data Allergies Allergy/AdvReac Type Severity Reaction Status Date / Time No Known Allergies Allergy Verified 12/24/20 15:45 Consultations 12/24/20 16:28 ED Decision to Admit Stat 12/24/20 17:45 Consult Cardiology Routine 12/24/20 19:51 Consult Neurology Routine Ordered Studies Laboratory Results WBC 8.53 K/uL (4.8-10.8) 12/28/20 06:45 RBC 5.21 M/uL (4.7-6.1) 12/28/20 06:45 Hgb 15.3 g/dL (14.0-18.0) 12/28/20 06:45 Hct 44.2 % (42-52) 12/28/20 06:45 MCV 84.8 fL (80-100) 12/28/20 06:45 MCH 29.4 pg (25-34) 12/28/20 06:45 MCHC 34.6 g/dL (32-36) 12/28/20 06:45 RDW Std Deviation 47.2 fL (36.4-46.3) H 12/28/20 06:45 RDW Coeff of Jb 15.3 % (11.5-14.5) H 12/28/20 06:45 Plt Count 183 K/uL (130-400) 12/28/20 06:45 MPV 8.8 fL (7.4-10.4) 12/28/20 06:45 Immature Gran % (Auto) 0.5 % 12/24/20 13:11 Neut % (Auto) 82.5 % 12/24/20 13:11 Lymph % (Auto) 5.9 % 12/24/20 13:11 Dixon % (Auto) 10.1 % 12/24/20 13:11 Eos % (Auto) 0.6 % 12/24/20 13:11 Baso % (Auto) 0.4 % 12/24/20 13:11 Neut # (Auto) 7.92 K/uL (1.4-6.5) H 12/24/20 13:11 Lymph # (Auto) 0.57 K/uL (1.2-3.4) L 12/24/20 13:11 Dixon # (Auto) 0.97 K/uL (0.11-0.59) H 12/24/20 13:11 Eos # (Auto) 0.06 K/uL (0-0.5) 12/24/20 13:11 Baso # (Auto) 0.04 K/uL (0-0.2) 12/24/20 13:11 Immature Gran # (Auto) 0.05 K/uL (0.00-0.02) H 12/24/20 13:11 PT 11.6 Seconds (9.0-12.0) 12/24/20 14:36 INR 1.2 (0.9-1.1) H 12/24/20 14:36 APTT 68.6 Seconds (21.0-31.0) H* 12/25/20 17:08 PTT Ratio 2.6 12/25/20 17:08 Sodium 134 mmol/L (136-145) L 12/29/20 09:22 Potassium 3.7 mmol/L (3.5-5.1) 12/29/20 09:22 Chloride 101 mmol/L (98-107) 12/29/20 09:22 Carbon Dioxide 30 mmol/L (21-32) 12/29/20 09:22 Anion Gap 3.0 (3-11) 12/29/20 09:22 BUN 23 mg/dl (7-18) H 12/29/20 09:22 Creatinine 1.24 mg/dl (0.6-1.4) 12/29/20 09:22 Est Cr Clr Drug Dosing 45.8 ml/min 12/29/20 09:22 Est GFR ( Amer) 61.5 ml/min 12/29/20 09:22 Est GFR (Non-Af Amer) 53.1 ml/min 12/29/20 09:22 BUN/Creatinine Ratio 18.4 (10-20) 12/29/20 09:22 Glucose 163 mg/dl (70-99) H 12/29/20 09:22 Calcium 9.2 mg/dl (8.5-10.1) 12/29/20 09:22 Magnesium 2.4 mg/dl (1.8-2.4) 12/29/20 09:22 Total Bilirubin 1.7 mg/dl (0.2-1) H 12/29/20 09:22 Direct Bilirubin 0.5 mg/dl (0-0.2) H 12/25/20 03:25 AST 55 U/L (15-37) H 12/29/20 09:22 ALT 72 U/L (12-78) 12/29/20 09:22 Alkaline Phosphatase 132 U/L (45-117) H 12/29/20 09:22 Troponin I 0.066 ng/ml (0-0.045) H* 12/25/20 00:13 NT-Pro-B Natriuret Pep 7150 pg/ml (0-1800) H 12/24/20 13:11 Total Protein 7.2 gm/dl (6.4-8.2) 12/29/20 09:22 Albumin 2.9 gm/dl (3.4-5.0) L 12/29/20 09:22 Globulin 4.3 gm/dl (2.5-4.0) H 12/29/20 09:22 Albumin/Globulin Ratio 0.7 (0.9-2) L 12/29/20 09:22 Lipase 312 U/L (73-393) 12/24/20 13:11 TSH 2.270 uIu/ml (0.300-4.500) 12/24/20 13:11 Urine Color Yellow 12/24/20 21:54 Urine Appearance Cloudy (Clear) A 12/24/20 21:54 Urine pH 7.0 (4.5-7.5) 12/24/20 21:54 Ur Specific [place] 1.006 (1.000-1.030) 12/24/20 21:54 Urine Protein Negative (Negative) 12/24/20 21:54 Urine Glucose (UA) Negative (Negative) 12/24/20 21:54 Urine Ketones Negative (Negative) 12/24/20 21:54 Urine Blood Trace (Negative) H 12/24/20 21:54 Urine Nitrite Negative (Negative) 12/24/20 21:54 Urine Bilirubin Negative (Negative) 12/24/20 21:54 Urine Urobilinogen Negative (Negative) 12/24/20 21:54 Ur Leukocyte Esterase 2+ (Negative) H 12/24/20 21:54 Urine WBC (Auto) >30 /hpf (0-5) H 12/24/20 21:54 Urine RBC (Auto) 0-4 /hpf (0-4) 12/24/20 21:54 U Hyaline Cast (Auto) 1-5 /lpf (0-5) 12/24/20 21:54 U Epithel Cells (Auto) 0-5 /lpf (0-5) 12/24/20 21:54 Urine Bacteria (Auto) Negative (Negative) 12/24/20 21:54 COVID-19 Eval Order Covid19 at [facility] 12/24/20 14:36 SARS-CoV-2 (PCR) NEGATIVE (Negative) 12/24/20 14:[address] 12/24/20 15:03 CT head/brain wo con CLINICAL HISTORY: 85 years-old Male with confusion. Acutely altered mental status TECHNIQUE: Multiple axial CT images of the head were obtained without contrast. A dose lowering technique was utilized adhering to the principles of ALARA. CT DOSE: 1219.50 mGycm COMPARISON: None. FINDINGS: No acute intracranial hemorrhage, midline shift, intracranial mass, hydrocephalus, territorial ischemia or abnormal extra-axial collection. Age- related involutional changes. White matter hypodensities suggest chronic microvascular ischemic disease. Extensive cerebral vascular calcifications are noted in addition to senescent calcifications of the basal ganglia. Nonspecific linear striated calcifications are noted within the white matter of the centrum semiovale. 8 mm hypodense focus of the medullary brainstem on image 9 series 2. Encephalomalacia from chronic appearing infarct of the periventricular left frontal lobe. The calvarium is intact. The paranasal sinuses, mastoid air cells, and middle ear cavities are clear. IMPRESSION: 1. No acute intracranial hemorrhage, midline shift or acute territorial infarct. 2. Subcentimeter hypodensity of the medullary brainstem is suggestive of artifact versus age-indeterminate lacunar infarct. 3. Chronic left frontal lobe infarct. 4. Age-related involutional changes with chronic microvascular ischemic disease. ACT 112: Negative or not required by law. The above report was generated using voice recognition software. It may contain grammatical, syntax or spelling errors. Electronically signed by: Steve Koroma M.D. 12/24/2020 3:35 PM Brain MRI 12/24/20 19:54 MR brain wo con HISTORY: 85 years-old Male stroke eval acute strokelike symptoms COMPARISON: Head CT 12/24/2020 TECHNIQUE: Multiplanar multisequence MRI the brain was obtained without the use of IV contrast. FINDINGS: Motion degraded exam. No restricted diffusion to suggest acute or subacute infarct. Chronic 10 mm infarct of the brainstem on image 7 of series 6 encephalomalacia related to chronic infarct of the periventricular left frontal lobe and genu of the corpus callosum. No acute intracranial hemorrhage, midline shift, abnormal extra-axial collection, hydrocephalus or intracranial mass. Senescent calcifications of the lentiform nuclei. Punctate areas of blooming artifact are noted within the bilateral cerebral hemispheres as seen on image 15 of series 8 which may represent areas of chronic microhemorrhage. Age-related involutional changes with extensive and confluent T2/FLAIR hyperintensities throughout the white matter. The cerebellum is atrophic. Cerebral venous sinuses and major arterial flow voids appear patent. Mild asymmetric prominence of the left carotid terminus compared to the right. Mastoid air cells and paranasal sinuses are clear. The skull, orbits and soft tissues are unremarkable. IMPRESSION: 1. No acute intracranial abnormality. No acute or subacute infarct. 2. 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 3. Age-related involutional changes with extensive chronic microvascular ischemic disease. ACT 112: Negative or not required by law. The above report was generated using voice recognition software. It may contain grammatical, syntax or spelling errors. Electronically signed by: Steve Koroma M.D. 12/25/2020 7:26 AM Chest X-Ray 12/29/20 09:04 XR chest 1V portable CLINICAL HISTORY: re-eval pleurla effusions TECHNIQUE: Single frontal radiograph of the chest was obtained. Comparison: Comparison is made to chest one view 12/24/2020 FINDINGS: Intact median sternotomy wires are unchanged. The cardiomediastinal silhouette is normal. Interval decrease in size of right pleural effusion, now small to moderate in size. Stable small left pleural effusion. IMPRESSION: Interval decrease in size of pleural effusions, small on the left and [id number] on the right. Associated atelectasis is seen. ACT 112: Negative or not required by law. Electronically signed by: Michael Davies M.D. 12/29/2020 10:53 AM Hospital Course (1) Heart failure, systolic, with acute decompensation: Elevated BNP, still remains fluid overloaded although improved. Low dose spironolactone per cardiology added this admission, additional Toprol change with improvement in heart rate. Cont furosemide. Ambulate with assistance as tolerated. Strict I/Os, low sodium diet, daily standing weights. (2) Pleural effusion: AFter diuresis, repeat CXR was performed revealing Interval decrease in size of pleural effusions, small on the left and [id number] on the right. Associated atelectasis is seen. No respiratory symptoms or other concerning clinical picture for pneumonia (fevers, chills, cough, etc). (3) Atrial fibrillation: chronic, Remains in persistent atrial fibrillation. Outpatient records indicated that apixaban had been stopped, however, this was restarted this admission. Cont apixaban and Toprol (4) UTI (urinary tract infection): With recent episode of ?syncope, increased forgetfulness and overall decompensation clinically will cover for bacteriuria with short course of antibiotics. Cont Augmentin. He appears improved since admisison. (5) Non-ischemic myocardial injury (non-traumatic): -Troponin 0.055 with flat trend, no accelerated rise -No reports of chest pain, EKG appears nonischemic -Likely demand ischemia in the setting of acute CHF (6) Tinea pedis: -Lower extremity exam findings consistent with tinea pedis, continues to improve. Holding trazodone and changed lipitor back to home dose 20mg daily- monitor renal functions and LFTs. Skin findings are improved. Doubt secondary cellulitis from appearance. Will cont to monitor closely. (7) History of aortic valve replacement with bioprosthetic valve: -Echo 11/11/2020 demonstrated normal aortic valve prosthesis systolic gradi ents. Cont daily aspirin. (8) HTN (hypertension): -BP controlled, continue lisinopril and metoprolol Total Time Total Time Spent Total Time Spent (In Minutes): 60 Discharge Plan Discharge Items Patient Disposition: Home - Home Health Services Reason For Visit: CHF Discharge Diagnosis: Heart failure, systolic, acute decompensation Pleural effusion atrial fibrillation UTI Nonischemic myocardial injury Tinea pedis Ambulatory dysfunction Condition on Discharge: Fair Activity: Resume your previous activity Non-emergency contact: Primary Care Provider Call non-emergency contact if: you have any medication questions and your symptoms worsen Follow-up/Referrals: Bucky Murray MD [Primary Care Provider] - (Date & Time 01/04/2021 3:00 PM Provider Bucky Murray MD Department Family Medicine [facility] ) Diet: Low Sodium (2gm) Addtl Attending Provider Instructions: Please take all medications as instructed on discharge list below. A follow-up appointment with your primary care physician is recommended in 1 week. You will need bloodwork and a repeat blood pressure and pulse check after multiple medication changes. This appointment will also be important to check your feet and legs and ensure your rash has healed. Please follow-up with [facility] in the next few weeks or as instructed. It was a pleasure taking care of you! Please call if you have any questions or problems. You can reach a [facility] hospitalist on duty at [facility] 24 hours a day by calling [phone]. Take care of yourself. Elham Thomas, [facility] Hospitalist Pending Studies at Discharge: No Stand-Alone Forms: My [facility] Medications and DC Order Prescriptions: New terbinafine HCl 250 mg Tablet 250 mg PO DAILY Qty: 5 RF: 0 amoxicillin-pot clavulanate [Augmentin] 875-125 mg Tablet 1 tab PO BIDM Qty: 10 RF: 0 Eliquis 5 mg Tablet 5 mg PO BID Qty: 60 RF: 0 metoprolol succinate 50 mg Tablet Extended Release 24 Hr 50 mg PO BID Qty: 60 RF: 0 spironolactone 25 mg Tablet 12.5 mg PO DAILY Qty: 30 RF: 0 furosemide 40 mg Tablet 40 mg PO QAM Qty: 30 RF: 0 Continued lisinopril 10 mg tablet 10 mg PO DAILY RF: 0 aspirin 81 mg Tablet 81 mg PO DAILY RF: 0 guaifenesin 600 mg Tablet Extended Release 12hr 600 mg PO Q12H PRN (Reason: Congestion) RF: 0 atorvastatin 20 mg tablet 20 mg PO DAILY RF: 0 trazodone 50 mg tablet 50 mg PO HS RF: 0 pantoprazole 40 mg tablet,delayed release (DR/EC) 40 mg PO DAILY RF: 0 finasteride 5 mg tablet 5 mg PO DAILY RF: 0 cholecalciferol (vitamin D3) [Vitamin D3] 50 mcg (2,000 unit) Capsule 50 mcg PO DAILY RF: 0 Discontinued metoprolol tartrate 25 mg tablet 25 mg PO BID RF: 0 doxycycline hyclate 100 mg capsule 100 mg PO BID 7 Days Qty: 14 RF: 0 Discharge Orders: Discharge Order (Routine); Ordered 12/29/20 Ordered By: Elham Thomas Admission Data Admit Date/Time: 12/24/20 16:41 Attending Provider: Elham Thomas Admit Provider: Elham Thomas Primary Care Provider: Bucky Murray Other Providers: Yusuf Torres Benjamin B. Other Interventions: Discharge Summary Assessment (RN) Last Done: 12/29/20 14:31
== END 2020-12-29 15:51 | disposition home health service (06) | DRG 291 ==
LOC: ED 13:28 → EDINP 16:41 → 1E 17:46 → 2S 12-27 11:38
DX: N18.30 Chronic kidney disease, stage 3 unspecified; J90 Pleural effusion, not elsewhere classified; I48.19 Other persistent atrial fibrillation; I24.8 Other forms of acute ischemic heart disease; B35.3 Tinea pedis; E87.6 Hypokalemia; B96.20 Unspecified Escherichia coli [E. coli] as the cause of diseases classified elsewhere; Z86.73 Personal history of transient ischemic attack (TIA), and cerebral infarction without residual deficits; E87.1 Hypo-osmolality and hyponatremia; I50.43 Acute on chronic combined systolic (congestive) and diastolic (congestive) heart failure; N39.0 Urinary tract infection, site not specified; I13.0 Hypertensive heart and chronic kidney disease with heart failure and stage 1 through stage 4 chronic kidney disease, or unspecified chronic kidney disease; Z79.82 Long term (current) use of aspirin; Z95.2 Presence of prosthetic heart valve